=== PATIENT | male | born 1970 | race American Indian/Alaskan Native ===

== ENCOUNTER 2020-04-22 01:21 | Emergency (ER) | payer OTHER ==
[2020-04-22] MEDS ORDERED: levETIRAcetam 1000 MG/NS 0.75% 1,000 MG/100 ML BAG IV ONE (01:26)
[2020-04-22] MEDS ORDERED: SODIUM CHLORIDE 0.9% 1000 ML 1,000 ML IV ONE ×2 (01:26→03:00)
--- NOTE | 2020-04-22 01:27 | Emergency Department Report ---
ED Seizure HPI - General Chief Complaint: Seizure Stated Complaint: SEIZURES Time Seen by Provider: 04/22/20 01:24 Source: patient, EMS Mode of arrival: Stretcher Limitations: No Limitations - History of Present Illness Initial Comments: Patient is a 49-year-old male that presents emergency room with a new onset seizure. Patient states he does have a history of seizures. Patient seizure was witnessed by his family. Patient states he was in his sleep. Patient states the next thing He notices was EMS and his family were standing around him. EMS states that the family witnessed him having convulsions while in bed. Patient denies pain. Patient denies chest pain. Patient denies recent head injury. Patient denies neck pain. Patient denies recent travel. Patient denies recent international travel. Patient denies exposure to the novel coronavirus. Patient denies sick contacts. Patient denies fever and chills. Patient denies cough. Patient denies diarrhea. Patient denies coming in contact with anybody with symptoms of the novel coronavirus. MD Complaint: seizure -: Sudden Description of Episode: loss of consciousness, post-event confusion Witnessed:: Yes Trauma: No Seizure History: none Place: home Possible Precipitating Event: none Associated Symptoms: denies: chest pain, confusion, cough, diaphoresis, fever/chills, loss of appetite, malaise, rash, shortness of breath, syncope, weakness, tongue injury, shoulder dislocation Treatments Prior to Arrival: none - Related Data Allergies Allergy/AdvReac Type Severity Reaction Status Date / Time No Known Allergies Allergy Unverified 04/22/20 01:27 ED Review of Systems ROS: Stated complaint: SEIZURES Other details as noted in HPI Constitutional: denies: chills, fever Eyes: denies: eye pain, eye discharge, vision change ENT: denies: ear pain, throat pain Respiratory: denies: cough, shortness of breath, wheezing Cardiovascular: denies: chest pain, palpitations Endocrine: no symptoms reported Gastrointestinal: denies: abdominal pain, nausea, diarrhea Genitourinary: denies: urgency, dysuria Musculoskeletal: denies: back pain, joint swelling, arthralgia Skin: denies: rash, lesions Neurological: denies: headache, weakness, paresthesias Psychiatric: denies: anxiety, depression Hematological/Lymphatic: denies: easy bleeding, easy bruising ED Past Medical Hx - Past Medical History Previous Medical History?: Yes Hx Diabetes: Yes Hx Seizures: No Additional medical history: Obstructive sleep apnea - Surgical History Past Surgical History?: No - Family History Family history: no significant - Social History Smoking Status: Never Smoker Substance Use Type: None ED Physical Exam - General Limitations: No Limitations General appearance: alert, in no apparent distress - Head Head exam: Present: atraumatic, normocephalic - Eye Eye exam: Present: normal appearance - ENT ENT exam: Present: mucous membranes moist - Neck Neck exam: Present: normal inspection - Respiratory Respiratory exam: Present: normal lung sounds bilaterally. Absent: respiratory distress - Cardiovascular Cardiovascular Exam: Present: regular rate, normal rhythm. Absent: systolic murmur, diastolic murmur, rubs, gallop - GI/Abdominal GI/Abdominal exam: Present: soft, normal bowel sounds - Rectal Rectal exam: Present: deferred - Extremities Exam Extremities exam: Present: normal inspection - Back Exam Back exam: Present: normal inspection - Neurological Exam Neurological exam: Present: alert, oriented X3 - Psychiatric Psychiatric exam: Present: normal affect, normal mood - Skin Skin exam: Present: warm, dry, intact, normal color. Absent: rash ED Course Vital Signs 04/22/20 04/22/20 04/22/20 01:24 01:31 01:46 Temperature 98.8 F Pulse Rate 114 H 113 H Respiratory 21 13 19 Rate Blood Pressure 152/85 Blood Pressure 152/85 [right aqrm] O2 Sat by Pulse 94 97 Oximetry 04/22/20 04/22/20 04/22/20 02:00 02:16 02:30 Temperature Pulse Rate Respiratory Rate Blood Pressure 143/87 143/87 143/87 Blood Pressure [right aqrm] O2 Sat by Pulse 95 95 97 Oximetry - Reevaluation(s) Reevaluation #1: I discussed labs with patient. Patient agrees with fluids and insulin. 04/22/20 03:20 Reevaluation #2: I discussed all results with patient. I discussed plan of care with patient. Patient refused to be admitted to the hospital. I discussed the risk with mert mobley. Patient voiced understanding of the risk. Patient refused to be admitted. Patient signed AMA form. Patient is going to leave the hospital AGAINST MEDICAL ADVICE. Patient still given discharge instructions. 04/22/20 03:51 ED Medical Decision Making - Lab Data Result diagrams: 04/22/20 01:33 04/22/20 01:33 - EKG Data -: EKG Interpreted by Me EKG shows normal: sinus rhythm, axis, intervals, QRS complexes, ST-T waves Rate: tachycardia - Radiology Data Radiology results: report reviewed CT head without contrast INDICATION : Seizure. TECHNIQUE: Axial imaging performed from the skull apex through the skull base without the use of contrast. All CT examinations performed at this facility utilize dose modulation, iterative reconstruction or weight-based dosing, when appropriate, to reduce radiation dose to as low as reasonably achievable. COMPARISON: None FINDINGS: No acute intracranial hemorrhage or parenchymal abnormality. Ventricles are normal in size and appear symmetric. Soft tissues including the orbits appear normal. No acute osseous a bnormality. Sinuses and mastoid air cells are clear. IMPRESSION: No acute abnormality. - Medical Decision Making Patient is a 49-year-old male that presents emergency room with new onset seizure. Patient also found to have hyperglycemia with EMS. Patient had labs done which showed dehydration and hyperglycemia. Patient given 2 L of fluid and Keppra.. Patient given insulin and his blood sugar dropped to 70. Patient's responded well to treatment. Patient had a head CT which was negative. Patient had EKG which was negative and showed sinus tachycardia. Patient requires admi ssion however the patient does not agree. Patient refused to be admitted. Patient given discharge instructions even though he is leaving the hospital AGAINST MEDICAL ADVICE. I discussed the risk with patient and the patient voiced understanding of the risk. Patient signed AMA form. Patient left the hospital AGAINST MEDICAL ADVICE with discharge instructions. - Differential Diagnosis Seizure, new onset seizure, hyperglycemia, uncontrolled diabetes, DKA Critical Care Time: Yes Critical care time in (mins) excluding proc time.: 35 Critical care attestation.: If time is entered above; I have spent that time in minutes in the direct care of this critically ill patient, excluding procedure time. Critical Care Time: 35 minutes ED Disposition Clinical Impression: Seizure, Hyperglycemia, New onset seizure Disposition: [id number] LEFT AGAINST MED ADVICE Is pt being admited?: No Does the pt Need Aspirin: No Condition: Critical Instructions: Seizure, Adult, Preventing Type 2 Diabetes Mellitus, Managing Non-Epileptic Seizures, Adult Additional Instructions: Patient to follow-up with primary care in 2 to 3 days. Patient to follow-up with neurology and endocrinology in 2 to 3 days. Patient to rest. Patient to increase water. Patient to avoid strenuous exercise or heavy lifting until cleared by neurology. Patient to not drive. patient to take Tylenol or ibupr ofen as needed for pain. Patient to take meds as directed. Patient to eat a diabetic diet. Patient to eat a heart healthy diet. Patient to monitor blood sugars at home. Patient to keep a blood sugar log. Patient to take blood sugar log to follow-up appointments. Patient to return to the ER if condition worsens, changes or new symptoms arise. Referrals: PRIMARY CARE, [Primary Care Provider] - 2-3 Days YORDAN YANEZ MD [Staff Physician] - 2-3 Days Time of Disposition: 03:54
[2020-04-22 01:52] LABS: Basophils % (Auto) 0.4 % (0.0-1.8); Eosinophils # (Auto) 1.1 K/mm3 (0.0-0.4); Lymphocytes # (Auto) 2.2 K/mm3 (1.2-5.4); Lymphocytes % (Auto) 28.6 % (13.4-35.0); Mean Corpuscular HGB Conc 36 % (32-34); Mean Corpuscular Volume 84 fl (84-94); Monocytes # (Auto) 0.4 K/mm3 (0.0-0.8); Monocytes % (Auto) 5.1 % (0.0-7.3); Platelet Count 186 K/mm3 (140-440); Red Blood Count 4.99 M/mm3 (3.65-5.03); Red Cell Distribution Width 13.3 % (13.2-15.2)
[2020-04-22 01:58] LABS: Hematocrit 41.8 % (35.5-45.6)
[2020-04-22 02:04] VITALS: BP 143/87
[2020-04-22 02:32] LABS: Bilirubin,Urine NEG (Negative); Blood,Urine SM (Negative); Color,Urine Colorless (Yellow); Mucus,Urine FEW /HPF; Protein,Urine <15 mg/dL mg/dL (Negative); Urobilinogen,Urine < 2.0 mg/dL (<2.0); WBC,Urine < 1.0 /HPF (0.0-6.0)
[2020-04-22 02:41] LABS: Amphetamine Screen,Urine PRESUMPTIVE NEGATIVE; Benzodiazepines Screen,Urine PRESUMPTIVE NEGATIVE; Cannabinoid Screen,Urine PRESUMPTIVE NEGATIVE; Cocaine Screen,Urine PRESUMPTIVE NEGATIVE; Methadone Screen,Urine PRESUMPTIVE NEGATIVE; Opiate Screen,Urine PRESUMPTIVE NEGATIVE
[2020-04-22 02:56] LABS: Alanine Aminotransferase 38 units/L (7-56); Albumin 4.1 g/dL (3.9-5); BUN/Creatinine Ratio 11; Blood Urea Nitrogen 13 mg/dL (9-20); Calcium 9.6 mg/dL (8.4-10.2); Hemolysis Index 19
[2020-04-22] MEDS ORDERED: INSULIN REGULAR, HUMAN 100 UNIT/ML 3ML VIAL IV ONE (03:00)
[2020-04-22] MEDS ORDERED: INSULIN REGULAR, HUMAN 100 UNITS/1 ML ONE (03:00)
--- NOTE | 2020-04-22 03:05 | Cat Scan Report ---
CT head without contrast INDICATION : Seizure. TECHNIQUE: Axial imaging performed from the skull apex through the skull base without the use of con trast. All CT examinations performed at this facility utilize dose modulation, iterative reconstruct ion or weight-based dosing, when appropriate, to reduce radiation dose to as low as reasonably achiev able. COMPARISON: None FINDINGS: No acute intracranial hemorrhage or parenchymal abnormality. Ventricles are normal in si ze and appear symmetric. Soft tissues including the orbits appear normal. No acute osseous abnorm ality. Sinuses and mastoid air cells are clear. IMPRESSION: No acute abnormality. Signer Name: Travis Montero MD Signed: 04/22/2020 3:00 AM Workstation Name: [id number]
== END 2020-04-22 04:07 | disposition left against medical advice (07) ==
LOC: ED 01:21
DX: G40.909 Epilepsy, unspecified, not intractable, without status epilepticus (principal); E11.65 Type 2 diabetes mellitus with hyperglycemia; G47.33 Obstructive sleep apnea (adult) (pediatric)
CPT/HCPCS: 36415; 70450; 80053; 80307; 81001; 82962; 85025; 93005; 96361; 96374; 96375; 99285; J1953; J7030; 80320; 96365; G0480; J1815

== ENCOUNTER 2021-07-17 00:07 | Inpatient (IN) | payer OTHER ==
[~2021-07-17 00:07] MED LIST: ETOMIDATE 20 MG/10 ML INJ IV ONE; ROCURONIUM 50 MG/5 ML INJ IV ONE
[2021-07-17] MEDS ORDERED: LACTATED RINGERS 1,000 ML IV ONE ×2 (00:15→01:37)
[2021-07-17] MEDS ORDERED: ETOMIDATE 20 MG/10 ML INJ IV ONE (00:15)
[2021-07-17] MEDS ORDERED: LIP THERAPY VASELINE TP PRN (00:15)
[2021-07-17] MEDS ORDERED: levETIRAcetam 1000 MG/NS 0.75% 1,000 MG/100 ML BAG IV ONE ×4 (00:15→03:00)
[2021-07-17] MEDS ORDERED: MINERAL OIL/PETROLATUM, WHITE OPHTH OINT 3.5 GM OU PRN (00:15)
--- NOTE | 2021-07-17 00:21 | Emergency Department Report ---
ED General Adult HPI - General Chief complaint: Altered Mental Status Stated complaint: ams Time Seen by Provider: 07/17/21 00:14 Source: EMS (Verbal report received from emergency medical services. EMS documentation not available at time of chart dictation ), RN notes reviewed, old records reviewed Mode of arrival: Stretcher Limitations: Altered Mental Status, Physical Limitation - History of Present Illness Initial comments: The patient was evaluated in the emergency department for symptoms described in the history of present illness. He/she was evaluated in the context of the global COVID-19 pandemic, which necessitated consideration that the patient might be at risk for infection with the virus that causes COVID-19. Institutional protocols and algorithms that pertain to the evaluation of patients at risk for COVID-19 are in a state of rapid change based on information released by regulatory bodies including the CDC and federal and sta organizations. These policies and algorithms were followed during the patient's care in the emergency department. Please note that these policies, procedures and recommendations changed on a rapid basis. The patient is a 50-year-old gentleman. The patient was seen here in 2019 for seizures and hyperglycemia. Admission was recommended at that time, and the patient reportedly signed out AMA, as per review of medical documentation. The patient is brought to the hospital by EMS today with an EMS articulated complaint of SVT, seizure, and hyperglycemia. As per verbal report from EMS, patient reportedly had a seizure or convulsion at home, without trauma. EMS reports that they picked up the patient and he was not seizing, but he was somewhat altered and combative, moving 4 extremities, and hyperglycemic in the field. EMS reports that the patient is tachycardic, hyperglycemic in the field and hypertensive. EMS reports that prehospital EKG shows narrow complex regular tachycardia/SVT. EMS further reports that they gave 6 mg of adenosine, 12 mg of adenosine, without success. They did not attempt cardioversion, or defibrillation. They also reports that the patient had a convulsive event in the field, which they terminated with 10 mg of midazolam. On arrival to this emergency room, the patient is noted to be in a narrow complex regular tachycardia, and is breathing sonorously He is on a nonrebreather, and under my direct supervision, he is emergently cardioverted with synchronized cardioversion at 200 J. The patient successfully converts into a sinus tachycardia. Post cardioversion, patient breathing sonorously and is not protecting his airway. Patient placed on nasal cannula at 15 L/min, and receives rhx-[id number]-[id number] ventilation. The patient is induced with 20 mg of etomidate, and paralyzed with 100 mg of rocuronium. The patient is easily intubated using video laryngoscopy with 1 attempt. Patient has now been in the emergency room for almost 2 hours. He has not had any additional seizures or convulsive activity. The patient had a CT scan of the brain, CT angiogram head and neck which was negative for acute findings. Contacted neurology on-call, Dr. Galina Wallace. Discussed the patient's history, physical, laboratory studies and imaging studies, and clinical impression. We are in agreement that this patient may be admitted to this hospital, with aggressive treatment for diabetic ketoacidosis. Patient does not require transfer for continuous EEG monitoring at this time, he is also in agreement with sedation with propofol and / orVersed, treatment of diabetic ketoacidosis and supportive care and we are also in agreement that the patient may receive an expedited/urgent inpatient EEG. His laboratory studies demonstrate diabetic ketoacidosis/metabolic acidosis, hemoconcentration, and a leukocytosis that is likely a stress reaction. Contacted critical care physician on-call, Dr. Moreno. He agrees with admission into the intensive care unit. Hospital physician, Dr. Rothman to admit to the ICU -: This evening - Related Data Allergies Allergy/AdvReac Type Severity Reaction Status Date / Time No Known Allergies Allergy Unverified 04/22/20 01:27 ED Review of Systems ROS: Stated complaint: SVT Other details as noted in HPI Comment: Unobtainable due to pts medical conditions (History as per EMS) ED Past Medical Hx - Past Medical History Hx Hypertension: Yes Hx Diabetes: Yes Hx Seizures: No Additional medical history: Obstructive sleep apnea - Social History Smoking Status: Never Smoker Substance Use Type: None ED Physical Exam - General Limitations: Altered Mental Status, Physical Limitation General appearance: obtunded - Head Head exam: Present: atraumatic, normocephalic - Eye Eye exam: Present: normal appearance, PERRL - ENT ENT exam: Present: normal exam, mucous membranes moist, normal external ear exam, other (Prior to intubation, copious secretions noted in the MARY PHARYNX) - Neck Neck exam: Present: normal inspection, full ROM. Absent: tenderness, meningismus - Respiratory Respiratory exam: Present: respiratory distress, rhonchi. Absent: stridor - Cardiovascular Cardiovascular Exam: Present: normal rhythm, tachycardia, normal heart sounds. Absent: bradycardia, irregular rhythm, systolic murmur, diastolic murmur, rubs, gallop - GI/Abdominal GI/Abdominal exam: Present: soft. Absent: distended, tenderness, guarding, rebound, rigid, pulsatile mass - Rectal Rectal exam: Present: deferred - Extremities Exam Extremities exam: Present: normal inspection, full ROM, other (2+ pulses noted in the bilateral upper and lower extremities. There is no palpable cord. negative Homans sign. Muscular compartments are soft. The pelvis is stable.). Absent: pedal edema, calf tenderness - Back Exam Back exam: Present: normal inspection, full ROM. Absent: tenderness, CVA tenderness (R), CVA tenderness (L), paraspinal tenderness, vertebral tenderness - Neurological Exam Neurological exam: Present: altered (The patient is altered. The patient is not seizing.) - Skin Skin exam: Present: warm, dry, intact, normal color. Absent: rash ED Course Vital Signs 07/17/21 07/17/21 07/17/21 00:07 00:48 00:50 Pulse Rate 154 H 127 H 102 H Respiratory 30 H 28 H Rate Blood Pressure 132/65 O2 Sat by Pulse 94 99 Oximetry 07/17/21 07/17/21 07/17/21 01:00 01:16 01:46 Pulse Rate 127 H 140 H 123 H Respiratory 28 H 28 H 26 H Rate Blood Pressure 119/62 123/75 104/61 O2 Sat by Pulse 98 98 98 Oximetry - Consultations Consultation #1: 07/17/21 02:05 Contacted neurology on-call, Dr. Galina Wallace. Discussed the patient's history, physical, laboratory studies and imaging studies, and clinical impression. We are in agreement that this patient may be admitted to this hospital, with aggressive treatment for diabetic ketoacidosis. Patient does not require transfer for continuous EEG monitoring at this time, he is also in agreement with sedation with propofol and / orVersed, treatment of diabetic ketoacidosis and supportive care and we are also in agreement that the patient may receive an expedited/urgent inpatient EEG. Contacted critical care physician on-call, Dr. Moreno. He agrees with admission into the intensive care unit. Consultation #2: 07/17/21 02:05 Contacted critical care physician on-call, Dr. Moreno. Discussed the patient's history, physical, laboratory studies and imaging studies and clinical impression. He agrees with admission into the intensive care unit. - Procedure Description Procedures done: Under direct supervision, patient received synchronized cardioversion at 200 J. Patient is emergently and administratively consented by myself for synchronized cardioversion, given narrow complex tachycardia, and altered mental status. After receipt of 200 J, patient in a sinus tachycardia, and tolerated procedure without difficulty - Intubation Time Out Performed: No (Emergency situation) Sedative: Etomidate (20 mg) Mg Given: 20 Paralytic: Rocuronium (100 mg) Laryngoscope: fiberoptic video scope Size: 4 Assist Device Used: fiberoptic device ET Tube Size: 7.5 Tube Secured Depth (cm): 24 Tube Secured Location: teeth Tube Placement Confirmation: visualized tube passing t, equal breath sounds bilat, no breath sounds over epi, confirmation by capnometr Patient Tolerated Procedure: well Intubation Complications: none Additional Comments: Patient placed on nasal cannula 15 L/min. Received simultaneous cam-ymudj-trgg ventilation. Preoxygenated to 99/100%. Video laryngoscopy is performed, with a curved S4 video living scope blade, and a 7.5 endotracheal tube is gently inserted into the oropharynx, after appropriate suctioning. The tube is placed through the trachea without difficulty, stylette is removed, check pilot balloon is inflated, and end-tidal capnography confirmatory device is attached to the endotracheal tube, and there is appropriate end-tidal capnography color change. Condensation is noted on the tube, and there are appropriate breath sounds appreciated bilaterally. The patient tolerated the procedure well, without obvious complication - Pulse Oximetry Interpretation Digit-Finger Initial Pulse Oximetry Readin O2 Sat by Pulse Oximetry: 99 Actions Taken: intubated (Saturating 99/100% on mechanical ventilation) ED Medical Decision Making - Lab Data Result diagrams: 07/17/21 00:47 07/17/21 00:47 Vital Signs 07/17/21 07/17/21 07/17/21 00:07 00:48 00:50 Pulse Rate 154 H 127 H 102 H Respiratory 30 H 28 H Rate Blood Pressure 132/65 O2 Sat by Pulse 94 99 Oximetry 07/17/21 07/17/21 07/17/21 01:00 01:16 01:46 Pulse Rate 127 H 140 H 123 H Respiratory 28 H 28 H 26 H Rate Blood Pressure 119/62 123/75 104/61 O2 Sat by Pulse 98 98 98 Oximetry Lab Results 07/17/21 07/17/21 07/17/21 Range/Units 00:47 00:47 00:47 WBC 19.0 H (4.5-11.0) K/mm3 RBC 5.74 H (3.65-5.03) M/mm3 Hgb 16.1 H (11.8-15.2) gm/dl Hct 51.0 H (35.5-45.6) % MCV 89 (84-94) fl MCH 28 (28-32) pg MCHC 32 (32-34) % RDW 12.3 L (13.2-15.2) % Plt Count 246 (140-440) K/mm3 Lymph # (Auto) Behavioral Specialist PT 14.6 (12.2-14.9) Sec. INR 1.03 (0.87-1.13) APTT 27.8 (24.2-36.6) Sec. Thrombin Time 19.7 H (15.1-19.6) Sec. VBG pH (7.320-7.420) Sodium 135 L (137-145) mmol/L Potassium 4.5 (3.6-5.0) mmol/L Chloride 92.9 L (98-107) mmol/L Carbon Dioxide 10 L (22-30) mmol/L Anion Gap 37 mmol/L BUN 13 (9-20) mg/dL Creatinine 1.4 H (0.8-1.3) mg/dL Estimated GFR > 60 ml/min BUN/Creatinine Ratio 9 % Glucose 532 H* (75-100) mg/dL Calcium 9.0 (8.4-10.2) mg/dL Magnesium 2.60 H (1.7-2.3) mg/dL Total Bilirubin 0.50 (0.1-1.2) mg/dL AST 23 (5-40) units/L ALT 29 (7-56) units/L Alkaline Phosphatase 143 H (35-129) units/L Total Creatine Kinase 146 (55-170) units/L CK-MB (CK-2) 2.9 (0.0-4.0) ng/mL CK-MB (CK-2) Rel Index 1.9 (0-4) Troponin T < 0.010 (0.00-0.029) ng/mL Total Protein 7.0 (6.3-8.2) g/dL Albumin 4.3 (3.9-5) g/dL Albumin/Globulin Ratio 1.6 % Salicylates (2.8-20.0) mg/dL Acetaminophen (10.0-30.0) ug/mL Plasma/Serum Alcohol (0-0.07) % 07/17/21 07/17/21 07/17/21 Range/Units 00:47 00:47 00:47 WBC (4.5-11.0) K/mm3 RBC (3.65-5.03) M/mm3 Hgb (11.8-15.2) gm/dl Hct (35.5-45.6) % MCV (84-94) fl MCH (28-32) pg MCHC (32-34) % RDW (13.2-15.2) % Plt Count (140-440) K/mm3 Lymph # (Auto) PT (12.2-14.9) Sec. INR (0.87-1.13) APTT (24.2-36.6) Sec. Thrombin Time (15.1-19.6) Sec. VBG pH 7.015 L* (7.320-7.420) Sodium (137-145) mmol/L Potassium (3.6-5.0) mmol/L Chloride (98-107) mmol/L Carbon Dioxide (22-30) mmol/L Anion Gap mmol/L BUN (9-20) mg/dL Creatinine (0.8-1.3) mg/dL Estimated GFR ml/min BUN/Creatinine Ratio % Glucose (75-100) mg/dL Calcium (8.4-10.2) mg/dL Magnesium (1.7-2.3) mg/dL Total Bilirubin (0.1-1.2) mg/dL AST (5-40) units/L ALT (7-56) units/L Alkaline Phosphatase (35-129) units/L Total Creatine Kinase (55-170) units/L CK-MB (CK-2) (0.0-4.0) ng/mL CK-MB (CK-2) Rel Index (0-4) Troponin T (0.00-0.029) ng/mL Total Protein (6.3-8.2) g/dL Albumin (3.9-5) g/dL Albumin/Globulin Ratio % Salicylates < 0.3 L (2.8-20.0) mg/dL Acetaminophen (10.0-30.0) ug/mL Plasma/Serum Alcohol < 0.01 (0-0.07) % 07/17/21 Range/Units 00:47 WBC (4.5-11.0) K/mm3 RBC (3.65-5.03) M/mm3 Hgb (11.8-15.2) gm/dl Hct (35.5-45.6) % MCV (84-94) fl MCH (28-32) pg MCHC (32-34) % RDW (13.2-15.2) % Plt Count (140-440) K/mm3 Lymph # (Auto) PT (12.2-14.9) Sec. INR (0.87-1.13) APTT (24.2-36.6) Sec. Thrombin Time (15.1-19.6) Sec. VBG pH (7.320-7.420) Sodium (137-145) mmol/L Potassium (3.6-5.0) mmol/L Chloride (98-107) mmol/L Carbon Dioxide (22-30) mmol/L Anion Gap mmol/L BUN (9-20) mg/dL Creatinine (0.8-1.3) mg/dL Estimated GFR ml/min BUN/Creatinine Ratio % Glucose (75-100) mg/dL Calcium (8.4-10.2) mg/dL Magnesium (1.7-2.3) mg/dL Total Bilirubin (0.1-1.2) mg/dL AST (5-40) units/L ALT (7-56) units/L Alkaline Phosphatase (35-129) units/L Total Creatine Kinase (55-170) units/L CK-MB (CK-2) (0.0-4.0) ng/mL CK-MB (CK-2) Rel Index (0-4) Troponin T (0.00-0.029) ng/mL Total Protein (6.3-8.2) g/dL Albumin (3.9-5) g/dL Albumin/Globulin Ratio % Salicylates (2.8-20.0) mg/dL Acetaminophen 5.0 L (10.0-30.0) ug/mL Plasma/Serum Alcohol (0-0.07) % - EKG Data -: EKG Interpreted by Md EKG shows normal: sinus rhythm Rate: normal - EKG Data 07/17/21 02:08 The EKG is interpreted at 02: 01 Sinus rhythm, tachycardia, rate 118 bpm. Normal axis, normal intervals, high left ventricular voltage. Not a STEMI. - Radiology Data Radiology results: pending, report reviewed, image reviewed CT angio neck INDICATION / CLINICAL INFORMATION: 50 years Male; seizure ams. TECHNIQUE: Thin cut axial images obtained through the head during IV bolus contrast administration. Sagittal, coronal, and 3 plane MIP reconstructions performed by the technologist. NASCET type criteria used evaluate stenoses. All CT scans at this location are performed using CT dose reduction for ALARA by means of automated exposure control. . COMPARISON: None available. FINDINGS: ARCH: Bovine arch configuration noted. CAROTID ARTERIES: The visualized common and internal carotid arteries are widely patent. VERTEBRAL ARTERIES: Codominant vertebral system seen. No significant stenosis appreciated. ADDITIONAL FINDINGS: Minimal scarring type changes in the lung apices-left greater than right. Patient is intubated. Some component of pleural thickening noted. Mild mucosal thickening in the ethmoids. IMPRESSION: No significant stenosis apprec iated on this CTA of the neck. Signer Name: Lane Alvarenga MD, III Signed: 07/17/2021 12:11 AM Workstation Name: [employer] CT angio head INDICATION / CLINICAL INFORMATION: 50 years Male; seizure ams. TECHNIQUE: Thin cut axial images obtained through the head during IV bolus contrast administration. Sagittal, coronal, and 3 plane MIP reconstructions performed by the technologist. NASCET type criteria used evaluate stenoses. Automated exposure control utilized for radiation reduction purposes. . COMPARISON: CT head - 12: 15 AM FINDINGS: INTERNAL CAROTID ARTERIES: No significant narrowing appreciated. VERTEBROBASILAR SYSTEM: No significant narrowing appreciated. DISTAL BRANCHES: Distal branches of the anterior, middle, and posterior cerebral arteries are fairly symmetric in appearance and number. ANEURYSM: None identified. ADDITIONAL FINDINGS: Remainder of the surrounding soft tissues are grossly normal. IMPRESSION: No cause for seizures identified. Signer Name: Lane Alvarenga MD, III Signed: 07/17/2021 12:12 AM Workstation Name: [id number] CT head/brain wo con INDICATION / CLINICAL INFORMATION: seizure ams. TECHNIQUE: Axial CT imaging of the brain was obtained without contrast. Coronal and sagittal reformatted imaging obtained and reviewed. All CT scans at this location are performed using CT dose reduction for ALARA by means of automated exposure control. COMPARISON: Prior head CT 04/22/2020 FINDINGS: No intracranial hemorrhage, mass, or midline shift noted. No extra-axial fluid collection or suggestion of acute territorial infarction. Ventricular system and basilar cisterns are unremarkable. Visualized paranasal sinuses and mastoid air cells are well aerated and clear. No calvarial abnormality. IMPRESSION: 1. No acute intracranial abnormality. Signer Name: Virginia Zheng MD Signed: 07/16/2021 11:59 PM Workstation Name: [id number] CHEST 1 VIEW INDICATION / CLINICAL INFORMATION: sz ams ett placement. COMPARISON: 06/18/2017 FINDINGS: SUPPORT DEVICES: ET tube is present. The tip is approximately 7 cm from the darrin. HEART / MEDIASTINUM: No significant abnormality. LUNGS / PLEURA: No significant pulmonary or pleural abnormality. No pneumothorax. Please note that overlying structures somewhat obscure detailed evaluation of the right lung. ADDITIONAL FINDINGS: No significant additional findings. IMPRESSION: 1. Tip of the ET tube is in the proximal/mid trachea, 7 cm from darrin. 2. No definite acute pulmonary or pleural disease. Signer Name: Virginia Zheng MD Signed: 07/17/2021 12:12 AM Workstation Name: [id number] - Medical Decision Making Differential diagnosis, including the not limited to: Diabetic ketoacidosis, pneumonia, urinary tract infection, seizure, intracranial lesion, large vessel occlusion, noncompliance, dehydration, SVT Assessment and plan: 50-year-old gentleman, with seizure, diabetic ketoacidosis, SVT, now in sinus rhythm status post cardioversion, status post midazolam administration by EMS, with multifactorial encephalopathy, requiring intubation. He will be maintained on a diabetic ketoacidosis protocol. He will receive IV fluids, Keppra, propofol. A CT scan of the brain, CT angiogram head and neck were negative for acute findings. X-ray the chest is unremarkable for acute findings. Urinalysis is pending at this time. Leukocytosis is likely a stress reaction. Critical care, neurology have been consulted. Hospital medicine to admit this patient to the medical service. Critical Care Time: Yes Critical care time in (mins) excluding proc time.: 74 Critical care attestation.: If time is entered above; I have spent that time in minutes in the direct care of this critically ill patient, excluding procedure time. ED Disposition Clinical Impression: Acute respiratory failure, SVT (supraventricular tachycardia), Seizure, DKA ( diabetic ketoacidosis) Disposition: 09 ADMITTED INPATIENT Is pt being admited?: Yes Does the pt Need Aspirin: No Condition: Critical Instructions: Diabetic Ketoacidosis (ED)
--- NOTE | 2021-07-17 01:04 | Cat Scan Report ---
CT head/brain wo con INDICATION / CLINICAL INFORMATION: seizure ams. TECHNIQUE: Axial CT imaging of the brain was obtained without contrast. Coronal and sagittal reformatted imaging obtained and reviewed. All CT scans at this location are performed using CT dose reduction for ALAR A by means of automated exposure control. COMPARISON: Prior head CT 04/22/2020 FINDINGS: No intracranial hemorrhage, mass, or midline shift noted. No extra-axial fluid collection or suggesti on of acute territorial infarction. Ventricular system and basilar cisterns are unremarkable. Visualized paranasal sinuses and mastoid air cells are well aerated and clear. No calvarial abnormali ty. IMPRESSION: 1. No acute intracranial abnormality. Signer Name: Virginia Zheng MD Signed: 07/17/2021 12:59 AM Workstation Name: [id number]
[2021-07-17 01:10] LABS: Hemoglobin 16.1 gm/dl (11.8-15.2); Mean Corpuscular HGB Conc 32 % (32-34); Mean Corpuscular Volume 89 fl (84-94); Platelet Count 246 K/mm3 (140-440); Red Blood Count 5.74 M/mm3 (3.65-5.03); Red Cell Distribution Width 12.3 % (13.2-15.2)
[2021-07-17] MEDS ORDERED: ROCURONIUM 50 MG/5 ML INJ IV ONE (01:12)
--- NOTE | 2021-07-17 01:15 | Cat Scan Report ---
CT angio neck INDICATION / CLINICAL INFORMATION: 50 years Male; seizure ams. TECHNIQUE: Thin cut axial images obtained through the head during IV bolus contrast administration. S agittal, coronal, and 3 plane MIP reconstructions performed by the technologist. NASCET type criteria used evaluate stenoses. All CT scans at this location are performed using CT dose reduction for ALAR A by means of automated exposure control. . COMPARISON: None available. FINDINGS: ARCH: Bovine arch configuration noted. CAROTID ARTERIES: The visualized common and internal carotid arteries are widely patent. VERTEBRAL ARTERIES: Codominant vertebral system seen. No significant stenosis appreciated. ADDITIONAL FINDINGS: Minimal scarring type changes in the lung apices-left greater than right. Patient is intubated. Some component of pleural thickening noted. Mild mucosal thickening in the ethmoids. IMPRESSION: No significant stenosis appreciated on this CTA of the neck. Signer Name: Lane Alvarenga MD, III Signed: 07/17/2021 1:11 AM Workstation Name: [id number]
--- NOTE | 2021-07-17 01:16 | XRay Report ---
CHEST 1 VIEW INDICATION / CLINICAL INFORMATION: sz ams ett placement. COMPARISON: 06/18/2017 FINDINGS: SUPPORT DEVICES: ET tube is present. The tip is approximately 7 cm from the darrin. HEART / MEDIASTINUM: No significant abnormality. LUNGS / PLEURA: No significant pulmonary or pleural abnormality. No pneumothorax. Please note that ov erlying structures somewhat obscure detailed evaluation of the right lung. ADDITIONAL FINDINGS: No significant additional findings. IMPRESSION: 1. Tip of the ET tube is in the proximal/mid trachea, 7 cm from darrin. 2. No definite acute pulmonary or pleural disease. Signer Name: Virginia Zheng MD Signed: 07/17/2021 1:12 AM Workstation Name: [id number]
--- NOTE | 2021-07-17 01:16 | Cat Scan Report ---
CT angio head INDICATION / CLINICAL INFORMATION: 50 years Male; seizure ams. TECHNIQUE: Thin cut axial images obtained through the head during IV bolus contrast administration. S agittal, coronal, and 3 plane MIP reconstructions performed by the technologist. NASCET type criteria used evaluate stenoses. Automated exposure control utilized for radiation reduction purposes. . COMPARISON: CT head - 12: 15 AM FINDINGS: INTERNAL CAROTID ARTERIES: No significant narrowing appreciated. VERTEBROBASILAR SYSTEM: No significant narrowing appreciated. DISTAL BRANCHES: Distal branches of the anterior, middle, and posterior cerebral arteries are fairly symmetric in appearance and number. ANEURYSM: None identified. ADDITIONAL FINDINGS: Remainder of the surrounding soft tissues are grossly normal. IMPRESSION: No cause for seizures identified. Signer Name: Lane Alvarenga MD, III Signed: 07/17/2021 1:12 AM Workstation Name: [email or web address] [id number]
[2021-07-17 01:26] LABS: INR 1.03 (0.87-1.13)
[2021-07-17 01:27] LABS: Partial Thromboplastin Time 27.8 Sec. (24.2-36.6); Thrombin Time 19.7 Sec. (15.1-19.6)
[2021-07-17 01:28] LABS: Creatine Kinase MB 2.9 ng/mL (0.0-4.0)
[2021-07-17 01:29] LABS: Alanine Aminotransferase 29 units/L (7-56); Albumin 4.3 g/dL (3.9-5); BUN/Creatinine Ratio 9; Blood Urea Nitrogen 13 mg/dL (9-20); Hemolysis Index 38
[2021-07-17] MEDS ORDERED: INSULIN REGULAR, HUMAN 100 UNITS/1 ML IV ONE (01:33)
[2021-07-17] MEDS ORDERED: DEXTROSE 50% IN WATER (25GM) 50 ML SYRINGE IV PRN ×2 (01:33→03:40)
[2021-07-17] MEDS ORDERED: D5W/0.45% NACL/KCL 20 MEQ 20 MEQ/1,000 ML BAG IV SCH (02:00)
[2021-07-17 02:14] LABS: BUN/Creatinine Ratio 9; Blood Urea Nitrogen 14 mg/dL (9-20); Calcium 9.1 mg/dL (8.4-10.2); Hemolysis Index 64
[2021-07-17] MEDS ORDERED: MIDAZOLAM 100 MG in SODIUM CHLORIDE 0.9% 80 ML IV SCH (02:31)
[2021-07-17 02:50] LABS: ABG Base Excess -8.1 mmol/L (-2.0-3.0); ABG HCO3 19.1 mmol/L (20.0-26.0); ABG Methemoglobin 0.6 % (0.0-1.5); ABG Oxygen Saturation 99.2 % (95.0-99.0); ABG PH 7.245 pH Units (7.350-7.450); ABG PO2 200.9 mm Hg (80.0-90.0)
[2021-07-17] MEDS: INSULIN REGULAR, HUMAN 100 UNITS in SODIUM CHLORIDE 0.9% 99 ML IV SCH ×2 (02:50→21:56)
[2021-07-17] MEDS ORDERED: MORPHINE 2 MG/1 ML INJ IV PRN (03:40)
[2021-07-17] MEDS ORDERED: ACETAMINOPHEN 325 MG TAB PO PRN (03:40)
[2021-07-17] MEDS ORDERED: ONDANSETRON 4 MG/2 ML INJ IV PRN (03:40)
[2021-07-17] MEDS ORDERED: ALBUTEROL 2.5 MG/3 ML NEBU IH PRN (03:40)
[2021-07-17] MEDS ORDERED: HYDROmorphone 1 MG/1 ML INJ IV PRN (03:40)
--- NOTE | 2021-07-17 03:52 | History and Physical Report ---
History of Present Illness Date of examination: 07/17/21 Date of admission: 07/17/21 Chief complaint: Altered mental status History of present illness: 50-year-old male with history of seizures and hyperglycemia was brought to the emergency room because of SVT, seizure, and hyperglycemia. patient reportedly had a seizure or convulsion at home, without trauma. EMS reports that they picked up the patient and he was not seizing, but he was somewhat altered and combative, moving 4 extremities, and hyperglycemic in the field. EMS reports that the patient is tachycardic, hyperglycemic in the field and hypertensive. EMS reports that prehospital EKG shows narrow complex regular tachycardia/SVT. EMS further reports that they gave 6 mg of adenosine, 12 mg of adenosine, without success. They did not attempt cardioversion, or defibrillation. They also reports that the patient had a convulsive event in the field, which they terminated with 10 mg of midazolam. On arrival to this emergency room, the patient is noted to be in a narrow complex regular tachycardia, and is breathing sonorously.patient was put on nonrebreather, and ER doctor emergently cardioverted with synchronized cardioversion at 200 J. The patient successfully converts into a sinus tachy cardia. Post cardioversion, patient breathing sonorously and is not protecting his airway. Subsequently patient was intubated by the ER physician The patient had a CT scan of the brain, CT angiogram head and neck which was negative for acute findings. Your doctor discussed the case with neurology on- call, Dr. Galina Wallace. The emergency room patient WBC is 19.2, blood glucose 532 anion gap 37 bicarb 10 BUN 13 creatinine 1.4 Patient laboratory studies demonstrate diabetic ketoacidosis/metabolic acidosis, hemoconcentration, and a leukocytosis that is likely a stress reaction. So going to admit the patient to the ICU. We consulted critical care evaluation as well as cardiology Past History Past Medical History: seizures Medications and Allergies Allergies Allergy/AdvReac Type Severity Reaction Status Date / Time No Known Allergies Allergy Unverified 04/22/20 01:27 Active Meds: Active Medications Acetaminophen (Acetaminophen 325 Mg Tab) 650 mg PO Q4H PRN PRN Reason: Pain MILD(1-3)/Fever >100.5/STEVENSON Albuterol (Albuterol 2.5 Mg/3 Ml Nebu) 2.5 mg IH Q3HRT PRN PRN Reason: Shortness Of Breath Albuterol/Ipratropium (Ipratropium/Albuterol Sulfate 3 Ml Ampul.Neb) 1 ampul IH Q6HRT HERMAN Dextrose (Dextrose 50% In Water (25gm) 50 Ml Syringe) 0 ml IV Q30MIN PRN; Anca col PRN Reason: Hypoglycemia Dextrose (Dextrose 50% In Water (25gm) 50 Ml Syringe) 0 ml IV Q30MIN PRN; Protocol PRN Reason: Hypoglycemia Famotidine (Famotidine 20 Mg/2 Ml Inj) 20 mg IV BID HERMAN Famotidine (Famotidine 20 Mg/2 Ml Inj) 20 mg IV BID HERMAN Hydromorphone HCl (Hydromorphone 1 Mg/1 Ml Inj) 0.5 mg IV Q3H PRN PRN Reason: Pain , Severe (7-10) Hydrophilic Ointment (Lip Therapy Vaseline) 1 applic TP Q2HR PRN PRN Reason: Dry Lips Propofol (Diprivan 10 Mg/Ml) 1,000 mg in 100 mls @ 12.927 mls/hr IV TITR HERMAN; Protocol Insulin Human Regular 100 (units/ Sodium Chloride) 100 mls @ 1 mls/hr IV TITR HERMAN; Protocol Last Admin: 07/17/21 02:50 Dose: 8 units/hr, 8 mls/hr Potassium Chloride/Dextrose/Sod Cl (D5w/0.45% Nacl/Kcl 20 Meq) 20 meq in 1,000 mls @ 125 mls/hr IV DIRECT HERMAN Midazolam HCl 100 mg/ Sodium (Chloride) 100 mls @ 1 mls/hr IV TITR HERMAN; Protocol Last Admin: 07/17/21 02:49 Dose: 1 mg/hr, 1 mls/hr Insulin Human Regular 100 (units/ Sodium Chloride) 100 mls @ 1 mls/hr IV TITR HERMAN; Protocol Sodium Chloride (Nacl 0.45% 1000 Ml) 1,000 mls @ 150 mls/hr IV DIRECT HERMAN Potassium Chloride/Dextrose/Sod Cl (D5w/0.45% Nacl/Kcl 20 Meq) 20 meq in 1,000 mls @ 125 mls/hr IV DIRECT HERMAN Levetiracetam 500 mg/ Dextrose 105 mls @ 400 mls/hr IV Q12HR HERMAN Midazolam HCl (Midazolam 2 Mg/2 Ml Inj) 2 mg IV Q10MIN PRN PRN Reason: Sedation Morphine Sulfate (Morphine 2 Mg/1 Ml Inj) 2 mg IV Q4H PRN PRN Reason: Pain, Moderate (4-6) Multi-Ingred Cream/Lotion/Oil/Oint (Mineral Oil/Petrolatum, White Ophth Oint 3.5 Gm) 1 applic OU Q4HR PRN PRN Reason: Dry Eye(s) Ondansetron HCl (Ondansetron 4 Mg/2 Ml Inj) 4 mg IV Q8H PRN PRN Reason: Nausea And Vomiting Senna/Docusate Sodium (Sennosides/Docusate Sodium 8.6/50 Mg Tab) 1 tab FEEDTUBE BID HERMAN Sodium Chloride (Sodium Chloride 0.9% 10 Ml Flush Syringe) 10 ml IV PRN PRN PRN Reason: LINE FLUSH Sodium Chloride (Sodium Chloride 0.9% 10 Ml Flush Syringe) 10 ml IV BID HERMAN Sodium Chloride (Sodium Chloride 0.9% 10 Ml Flush Syringe) 10 ml IV PRN PRN PRN Reason: LINE FLUSH Review of Systems All systems: negative Constitutional: fatigue, malaise, lethargy Neurological: change in mentation Exam - Constitutional Vitals: Temp Pulse Resp BP Pulse Ox 112 H 26 H 104/61 99 07/17/21 03:21 07/17/21 01:46 07/17/21 01:46 07/17/21 03:21 General appearance: Present: severe distress, well-nourished - EENT Eyes: Present: PERRL ENT: hearing intact, clear oral mucosa - Neck Neck: Present: supple, normal ROM - Respiratory Respiratory effort: normal Respiratory: bilateral: CTA - Cardiovascular Heart Sounds: Present: S1 & S2. Absent: rub, click - Extremities Extremities: pulses symmetrical, No edema Peripheral Pulses: within normal limits - Abdominal General gastrointestinal: Present: soft, non-tender, non-distended, normal bowel sounds Male genitourinary: Present: normal - Integumentary Integumentary: Present: clear, warm, dry - Musculoskeletal Musculoskeletal: gait normal, strength equal bilaterally - Psychiatric Psychiatric: other (Patient is status post intubation) - Neurologic Neurologic: CNII-XII intact, moves all extremities, other (Patient is on vent) HEART Score - HEART Score Troponin: Troponin T < 0.010 ng/mL (0.00-0.029) 07/17/21 00:47 Results - Labs CBC & Chem 7: 07/17/21 00:47 07/17/21 01:45 Labs: Laboratory Last Values WBC 19.0 K/mm3 (4.5-11.0) H 07/17/21 00:47 RBC 5.74 M/mm3 (3.65-5.03) H 07/17/21 00:47 Hgb 16.1 gm/dl (11.8-15.2) H 07/17/21 00:47 Hct 51.0 % (35.5-45.6) H 07/17/21 00:47 MCV 89 fl (84-94) 07/17/21 00:47 MCH 28 pg (28-32) 07/17/21 00:47 MCHC 32 % (32-34) 07/17/21 00:47 RDW 12.3 % (13.2-15.2) L 07/17/21 00:47 Plt Count 246 K/mm3 (140-440) 07/17/21 00:47 Lymph # (Auto) Display Screen Fabricator 07/17/21 00:47 PT 14.6 Sec. (12.2-14.9) 07/17/21 00:47 INR 1.03 (0.87-1.13) 07/17/21 00:47 APTT 27.8 Sec. (24.2-36.6) 07/17/21 00:47 Thrombin Time 19.7 Sec. (15.1-19.6) H 07/17/21 00:47 ABG pH 7.245 pH Units (7.350-7.450) L 07/17/21 02:00 ABG pCO2 45.0 mm Hg 07/17/21 02:00 ABG pO2 200.9 mm Hg (80.0-90.0) H 07/17/21 02:00 ABG HCO3 19.1 mmol/L (20.0-26.0) L 07/17/21 02:00 ABG O2 Saturation 99.2 % (95.0-99.0) H 07/17/21 02:00 ABG O2 Content 24.1 (0.0-44) 07/17/21 02:00 ABG Base Excess -8.1 mmol/L (-2.0-3.0) L 07/17/21 02:00 ABG Hemoglobin 17.4 gm/dl (14.0-18.0) 07/17/21 02:00 ABG Carboxyhemoglobin 1.3 % (0.0-5.0) 07/17/21 02:00 ABG Methemoglobin 0.6 % (0.0-1.5) 07/17/21 02:00 VBG pH 7.015 (7.320-7.420) L* 07/17/21 00:47 Oxyhemoglobin 97.2 % (95.0-99.0) 07/17/21 02:00 FiO2 100 % 07/17/21 02:00 Sodium 132 mmol/L (137-145) L 07/17/21 01:45 Potassium 4.6 mmol/L (3.6-5.0) 07/17/21 01:45 Chloride 94.5 mmol/L (98-107) L 07/17/21 01:45 Carbon Dioxide 15 mmol/L (22-30) L 07/17/21 01:45 Anion Gap 27 mmol/L 07/17/21 01:45 BUN 14 mg/dL (9-20) 07/17/21 01:45 Creatinine 1.5 mg/dL (0.8-1.3) H 07/17/21 01:45 Estimated GFR > 60 ml/min 07/17/21 01:45 BUN/Creatinine Ratio 9 % 07/17/21 01:45 Glucose 540 mg/dL (75-100) H* 07/17/21 01:45 Calcium 9.1 mg/dL (8.4-10.2) 07/17/21 01:45 Magnesium 2.60 mg/dL (1.7-2.3) H 07/17/21 00:47 Total Bilirubin 0.50 mg/dL (0.1-1.2) 07/17/21 00:47 AST 23 units/L (5-40) 07/17/21 00:47 ALT 29 units/L (7-56) 07/17/21 00:47 Alkaline Phosphatase 143 units/L (35-129) H 07/17/21 00:47 Total Creatine Kinase 146 units/L (55-170) 07/17/21 00:47 CK-MB (CK-2) 2.9 ng/mL (0.0-4.0) 07/17/21 00:47 CK-MB (CK-2) Rel Index 1.9 (0-4) 07/17/21 00:47 Troponin T < 0.010 ng/mL (0.00-0.029) 07/17/21 00:47 Total Protein 7.0 g/dL (6.3-8.2) 07/17/21 00:47 Albumin 4.3 g/dL (3.9-5) 07/17/21 00:47 Albumin/Globulin Ratio 1.6 % 07/17/21 00:47 Salicylates < 0.3 mg/dL (2.8-20.0) L 07/17/21 00:47 Acetaminophen 5.0 ug/mL (10.0-30.0) L 07/17/21 00:47 Plasma/Serum Alcohol < 0.01 % (0-0.07) 07/17/21 00:47 - Imaging and Cardiology Chest x-ray: report reviewed CT Scan - head: report reviewed Assessment and Plan VTE prophylaxis?: Mechanical Plan of care discussed with patient/family: Yes - Patient Problems (1) Acute respiratory failure Current Visit: Yes Status: Acute Plan to address problem: Admit the patient to the ICU. NPO. Half-normal saline at the rate of 150/h. Patient is status post intubation. DuoNeb by nebulizer every 4 hours. Rocephin 2 g IV daily. Zithromax 500 mils IV daily. Will consult critical care evaluation blood culture sputum culture (2) DKA (diabetic ketoacidosis) Current Visit: Yes Status: Acute Plan to address problem: Put the patient on DKA pathway. NPO. Half-normal saline at at the rate of 150 cc/h. Insulin drip as per DKA protocol. Serial BMP. Will consult critical care evaluation (3) SVT (supraventricular tachycardia) Current Visit: Yes Status: Acute Plan to address problem: We will consult cardiology for evaluation. Echocardiogram. Patient is status post cardioversion (4) Seizure Current Visit: Yes Status: Acute Plan to address problem: Keppra 500 mg IV every 12 hours. EEG. Neurology evaluation (5) DVT prophylaxis Current Visit: Yes Status: Acute Plan to address problem: SCD for DVT prophylaxis. Pepcid 20 mg IV every 12 hours for GI prophylaxis. Patient is a full code
[2021-07-17] MEDS ORDERED: cefTRIAXone/NS 2 GM/100 ML 2 GM/100 ML BAG IV SCH (04:00)
[2021-07-17] MEDS ORDERED: SODIUM CHLORIDE 0.45% 1000 ML 1,000 ML IV SCH (04:00)
[2021-07-17] MEDS ORDERED: AZITHROMYCIN/NS 500 MG/250 ML 500 MG/250 ML BAG IV SCH (04:00)
[2021-07-17] MEDS ORDERED: INSULIN REGULAR, HUMAN 100 UNITS in SODIUM CHLORIDE 0.9% 99 ML IV SCH (04:00)
[2021-07-17] MEDS ORDERED: DEXTROSE 10% *Hypoglycemia IV PRN (04:02)
[2021-07-17 04:50] LABS: BUN/Creatinine Ratio 12; Blood Urea Nitrogen 17 mg/dL (9-20); Calcium 8.7 mg/dL (8.4-10.2); Hemolysis Index 32
[2021-07-17 05:23] LABS: Basophils % (Manual) 0 % (0.0-1.8); Myelocytes # (Manual) 0.4 K/mm3; Total Cells Counted 100
[2021-07-17 05:24] LABS: Platelet Estimate Consistent w Auto; Toxic Granulation 1+
[2021-07-17 06:21] LABS: BUN/Creatinine Ratio 13; Blood Urea Nitrogen 15 mg/dL (9-20); Calcium 8.8 mg/dL (8.4-10.2); Hemolysis Index 32
[2021-07-17] MEDS ORDERED: IPRATROPIUM/ALBUTEROL SULFATE 3 ML AMPUL.NEB IH SCH (08:00)
--- NOTE | 2021-07-17 09:10 | Consultation ---
History of Present Illness Consult date: 07/17/21 Reason for Consult: Seizure,altered mentation,intubated and sedated History of present illness: Altered mental status History of present illness: 50-year-old male with history of seizures and hyperglycemia was brought to the emergency room because of SVT, seizure, and hyperglycemia. patient reportedly had a seizure or convulsion at home, without trauma. EMS reports that they picked up the patient and he was not seizing, but he was somewhat altered and combative, moving 4 extremities, and hyperglycemic in the field. EMS reports that the patient is tachycardic, hyperglycemic in the field and hypertensive. EMS reports that prehospital EKG shows narrow complex regular tachycardia/SVT. EMS further reports that they gave 6 mg of adenosine, 12 mg of adenosine, without success. They did not attempt cardioversion, or defibrillation. They also reports that the patient had a convulsive event in the field, which they terminated with 10 mg of midazolam. On arrival to this emergency room, the patient is noted to be in a narrow complex regular tachycardia, and is breathing sonorously.patient was put on nonrebreather, and ER doctor emergently cardioverted with synchronized cardioversion at 200 J. The patient successfully converts into a sinus tachycardia. Post cardioversion, patient breathing sonorously and is not protecting his airway. Subsequently patient was intubated by the ER physician The patient had a CT scan of the brain, CT angiogram head and neck which was negative for acute findings. The emergency room patient WBC is 19.2, blood glucose 532 anion gap 37 bicarb 10 BUN 13 creatinine 1.4 Patient laboratory studies demonstrate diabetic ketoacidosis/metabolic acidosis, hemoconcentration, and a leukocytosis that is likely a stress reaction. pt. was intubated and sedated no witnessed seizure in ICU currently he is moving all limbs , cranial intact , he is on Deprivan #10 mc , and Versed#2 mc, and insulin Iv drip current glucose is 342 Past History Past Medical History: seizures Medications and Allergies Allergies Allergy/AdvReac Type Severity Reaction Status Date / Time No Known Allergies Allergy Unverified 04/22/20 01:27 Active Meds: Active Medications Acetaminophen (Acetaminophen 325 Mg Tab) 650 mg PO Q4H PRN PRN Reason: Pain MILD(1-3)/Fever >100.5/STEVENSON Albuterol (Albuterol 2.5 Mg/3 Ml Nebu) 2.5 mg IH Q3HRT PRN PRN Reason: Shortness Of Breath Albuterol/Ipratropium (Ipratropium/Albuterol Sulfate 3 Ml Ampul.Neb) 1 ampul IH Q6HRT HERMAN Dextrose (Dextrose 50% In Water (25gm) 50 Ml Syringe) 0 ml IV Q30MIN PRN; Protocol PRN Reason: Hypoglycemia Dextrose (Dextrose 50% In Water (25gm) 50 Ml Syringe) 0 ml IV Q30MIN PRN; Protocol PRN Reason: Hypoglycemia Famotidine (Famotidine 20 Mg/2 Ml Inj) 20 mg IV BID HERMAN Famotidine (Famotidine 20 Mg/2 Ml Inj) 20 mg IV BID HERMAN Hydromorphone HCl (Hydromorphone 1 Mg/1 Ml Inj) 0.5 mg IV Q3H PRN PRN Reason: Pain , Severe (7-10) Hydrophilic Ointment (Lip Therapy Vaseline) 1 applic TP Q2HR PRN PRN Reason: Dry Lips Propofol (Diprivan 10 Mg/Ml) 1,000 mg in 100 mls @ 12.927 mls/hr IV TITR HERMAN; Protocol Insulin Human Regular 100 (units/ Sodium Chloride) 100 mls @ 1 mls/hr IV TITR HERMAN; Protocol Last Admin: 07/17/21 02:50 Dose: 8 units/hr, 8 mls/hr Potassium Chloride/Dextrose/Sod Cl (D5w/0.45% Nacl/Kcl 20 Meq) 20 meq in 1,000 mls @ 125 mls/hr IV DIRECT HERMAN Midazolam HCl 100 mg/ Sodium (Chloride) 100 mls @ 1 mls/hr IV TITR HERMAN; Protocol Last Admin: 07/17/21 02:49 Dose: 1 mg/hr, 1 mls/hr Insulin Human Regular 100 (units/ Sodium Chloride) 100 mls @ 1 mls/hr IV TITR HERMAN; Protocol Sodium Chloride (Nacl 0.45% 1000 Ml) 1,000 mls @ 150 mls/hr IV DIRECT HERMAN Potassium Chloride/Dextrose/Sod Cl (D5w/0.45% Nacl/Kcl 20 Meq) 20 meq in 1,000 mls @ 125 mls/hr IV DIRECT HERMAN Levetiracetam 500 mg/ Dextrose 105 mls @ 400 mls/hr IV Q12HR HERMAN Midazolam HCl (Midazolam 2 Mg/2 Ml Inj) 2 mg IV Q10MIN PRN PRN Reason: Sedation Morphine Sulfate (Morphine 2 Mg/1 Ml Inj) 2 mg IV Q4H PRN PRN Reason: Pain, Moderate (4-6) Multi-Ingred Cream/Lotion/Oil/Oint (Mineral Oil/Petrolatum, White Ophth Oint 3.5 Gm) 1 applic OU Q4HR PRN PRN Reason: Dry Eye(s) Ondansetron HCl (Ondansetron 4 Mg/2 Ml Inj) 4 mg IV Q8H PRN PRN Reason: Nausea And Vomiting Senna/Docusate Sodium (Sennosides/Docusate Sodium 8.6/50 Mg Tab) 1 tab FEEDTUBE BID HERMAN Sodium Chloride (Sodium Chloride 0.9% 10 Ml Flush Syringe) 10 ml IV PRN PRN PRN Reason: LINE FLUSH Sodium Chloride (Sodium Chloride 0.9% 10 Ml Flush Syringe) 10 ml IV BID HERMAN Sodium Chloride (Sodium Chloride 0.9% 10 Ml Flush Syringe) 10 ml IV PRN PRN PRN Reason: LINE FLUSH Review of Systems All systems: negative Constitutional: fatigue, malaise, lethargy Neurological: change in mentation Past History Past Medical History: seizures Medications and Allergies Allergies Allergy/AdvReac Type Severity Reaction Status Date / Time No Known Allergies Allergy Unverified 04/22/20 01:27 Active Meds: Active Medications Acetaminophen (Acetaminophen 325 Mg Tab) 650 mg PO Q4H PRN PRN Reason: Pain MILD(1-3)/Fever >100.5/[facility]ENSON Albuterol (Albuterol 2.5 Mg/3 Ml Nebu) 2.5 mg IH Q3HRT PRN PRN Reason: Shortness Of Breath Albuterol/Ipratropium (Ipratropium/Albuterol Sulfate 3 Ml Ampul.Neb) 1 ampul IH Q6HRT HERMAN Dextrose (Dextrose 10% *Hypoglycemia) 0 ml IV PRN PRN; Protocol PRN Reason: Hypoglycemia Famotidine (Famotidine 20 Mg/2 Ml Inj) 20 mg IV BID HERMAN Hydromorphone HCl (Hydromorphone 1 Mg/1 Ml Inj) 0.5 mg IV Q3H PRN PRN Reason: Pain , Severe (7-10) Hydrophilic Ointment (Lip Therapy Vaseline) 1 applic TP Q2HR PRN PRN Reason: Dry Lips Propofol (Diprivan 10 Mg/Ml) 1,000 mg in 100 mls @ 12.927 mls/hr IV TITR HERMAN; Protocol Last Admin: 07/17/21 06:36 Dose: 25 mcg/kg/min, 12.927 mls/hr Insulin Human Regular 100 (units/ Sodium Chloride) 100 mls @ 1 mls/hr IV TITR HERMAN; Protocol Last Titration: 07/17/21 08:30 Dose: 4 units/hr, 4 mls/hr Midazolam HCl 100 mg/ Sodium (Chloride) 100 mls @ 1 mls/hr IV TITR HERMAN; Protocol Last Titration: 07/17/21 03:51 Dose: 2 mg/hr, 2 mls/hr Sodium Chloride (Nacl 0.45% 1000 Ml) 1,000 mls @ 150 mls/hr IV DIRECT HERMAN Potassium Chloride/Dextrose/Sod Cl (D5w/0.45% Nacl/Kcl 20 Meq) 20 meq in 1,000 mls @ 125 mls/hr IV DIRECT HERMAN Levetiracetam 500 mg/ Dextrose 105 mls @ 400 mls/hr IV Q12H HERMAN Ceftriaxone Sodium (Rocephin/Ns 2 Gm/100 Ml) 2 gm in 100 mls @ 200 mls/hr IV Q24H HERMAN; Protocol Last Admin: 07/17/21 04:13 Dose: 200 mls/hr Azithromycin (Zithromax/Ns) 500 mg in 250 mls @ 250 mls/hr IV Q24H HERMAN Last Admin: 07/17/21 05:06 Dose: 250 mls/hr Midazolam HCl (Midazolam 2 Mg/2 Ml Inj) 2 mg IV Q10MIN PRN PRN Reason: Sedation Morphine Sulfate (Morphine 2 Mg/1 Ml Inj) 2 mg IV Q4H PRN PRN Reason: Pain, Moderate (4-6) Multi-Ingred Cream/Lotion/Oil/Oint (Mineral Oil/Petrolatum, White Ophth Oint 3.5 Gm) 1 applic OU Q4HR PRN PRN Reason: Dry Eye(s) Ondansetron HCl (Ondansetron 4 Mg/2 Ml Inj) 4 mg IV Q8H PRN PRN Reason: Nausea And Vomiting Senna/Docusate Sodium (Sennosides/Docusate Sodium 8.6/50 Mg Tab) 1 tab FEEDTUBE BID HERMAN Sodium Chloride (Sodium Chloride 0.9% 10 Ml Flush Syringe) 10 ml IV BID HERMAN Sodium Chloride (Sodium Chloride 0.9% 10 Ml Flush Syringe) 10 ml IV PRN PRN PRN Reason: LINE FLUSH Physical Examination - Vital Signs Vital Signs: Vital Signs Pulse Resp Pulse Ox 154 H 30 H 94 07/17/21 00:07 07/17/21 00:07 07/17/21 00:07 - Constitutional General appearance: comfortable - EENT EENT: Present: PERRL, mucous membranes moist - Respiratory Respiratory: Present: lungs clear, rhonchi - Cardiovascular Cardiovascular: Present: regular rate, normal S1, normal S2 Extremities: Present: no peripheral edema bilatateraly, no clubbing, cyanosis - Gastrointestinal Gastrointestinal: Present: normoactive bowel sounds - Integumentary Integumentary: Present: normal - Neurologic Cranial nerve examination: PERRL, EOMI, intact Speech examination: other (intubated) Detailed motor examination: grossly full strength in Results - Laboratory Findings CBC and BMP: 07/17/21 00:47 07/17/21 11:54 Abnormal Lab Findings: Abnormal Labs 07/17/21 07/17/21 07/17/21 00:47 00:47 00:47 WBC 19.0 H RBC 5.74 H Hgb 16.1 H Hct 51.0 H RDW 12.3 L Seg Neutrophils # Man 12.7 H Thrombin Time 19.7 H ABG pH ABG pO2 ABG HCO3 ABG O2 Saturation ABG Base Excess VBG pH Sodium 135 L Chloride 92.9 L Carbon Dioxide 10 L Creatinine 1.4 H Glucose 532 H* POC Glucose Phosphorus Magnesium 2.60 H Alkaline Phosphatase 143 H Salicylates Acetaminophen 07/17/21 07/17/21 07/17/21 00:47 00:47 00:47 WBC RBC Hgb Hct RDW Seg Neutrophils # Man Thrombin Time ABG pH ABG pO2 ABG HCO3 ABG O2 Saturation ABG Base Excess VBG pH 7.015 L* Sodium Chloride Carbon Dioxide Creatinine Glucose POC Glucose Phosphorus Magnesium Alkaline Phosphatase Salicylates < 0.3 L Acetaminophen 5.0 L 07/17/21 07/17/21 07/17/21 01:45 02:00 03:44 WBC RBC Hgb Hct RDW Seg Neutrophils # Man Thrombin Time ABG pH 7.245 L ABG pO2 200.9 H ABG HCO3 19.1 L ABG O2 Saturation 99.2 H ABG Base Excess -8.1 L VBG pH Sodium 132 L 132 L Chloride 94.5 L Carbon Dioxide 15 L 18 L Creatinine 1.5 H 1.4 H Glucose 540 H* 545 H* POC Glucose Phosphorus Magnesium Alkaline Phosphatase Salicylates Acetaminophen 07/17/21 07/17/21 07/17/21 03:47 03:58 05:42 WBC RBC Hgb Hct RDW Seg Neutrophils # Man Thrombin Time ABG pH ABG pO2 ABG HCO3 ABG O2 Saturation ABG Base Excess VBG pH Sodium Chloride Carbon Dioxide 20 L Creatinine Glucose 342 H POC Glucose 483 H Phosphorus 2.10 L Magnesium 2.50 H Alkaline Phosphatase Salicylates Acetaminophen 07/17/21 07/17/21 07/17/21 06:36 07:24 08:26 WBC RBC Hgb Hct RDW Seg Neutrophils # Man Thrombin Time ABG pH ABG pO2 ABG HCO3 ABG O2 Saturation ABG Base Excess VBG pH Sodium Chloride Carbon Dioxide Creatinine Glucose POC Glucose 360 H 264 H 249 H Phosphorus Magnesium Alkaline Phosphatase Salicylates Acetaminophen Assessment and Plan Assessment and Plan 50-year-old male with history of seizures and hyperglycemia was brought to the emergency room because of SVT, seizure, and hyperglycemia. patient reportedly had a seizure or convulsion at home, without trauma. EMS reports that they picked up the patient and he was not seizing, but he was somewhat altered and combative, moving 4 extremities, and hyperglycemic in the field. - Patient Problems # Acute respiratory failure - Intubated and sedated -Move all limbs to stimuli, slightly follow command -currently on Propofol and versed # DKA (diabetic ketoacidosis) -Initial Glucose#545 -Hco3 is #10 -strarted on IV fluid and Insulin IV # SVT (supraventricular tachycardia) -Cardiology for evaluation. - Echocardiogram. - Patient is status post cardioversion -Consider MRI brain when stable -UDS is negative # Seizure -Hx of seizure -? compliance with medications -MRI brain when stable -EEG today -cut sedation as possible _Keppra 500 mg Iv Bid # DVT prophylaxis -SCD for DVT prophylaxis. - Pepcid 20 mg IV every 12 hours for GI prophylaxis. - Patient is a full code Critical care statement The high probability of a clinically significant sudden or life-threatening deterioration of the cardiorespiratory system and endocrine system required my full and direct attention, intervention and postoperative management. The aggregate critical care time was 40 minutes. The time is in addition to time spent performing reported procedures but includes the followin: Data review and interpretation 2: Patient assessment and monitoring of vital signs 3: Documentation 4:: Medication orders and management
[2021-07-17] MEDS ORDERED: SODIUM CHLORIDE 0.9% 50 ML IVPB IV PRN (09:16)
[2021-07-17] MEDS: FAMOTIDINE 20 MG/2 ML INJ IV SCH ×2 (09:30→21:55)
[2021-07-17] MEDS: SENNOSIDES/DOCUSATE SODIUM 8.6/50 MG TAB FEEDTUBE SCH ×2 (09:31→22:00)
--- NOTE | 2021-07-17 09:52 | Consultation ---
History of Present Illness Consult date: 07/17/21 Requesting physician: FERN SANCHEZ Reason for consult: other (SVT, s/p cardioversion) Past History Past Medical History: seizures Medications and Allergies Allergies Allergy/AdvReac Type Severity Reaction Status Date / Time No Known Allergies Allergy Unverified 04/22/20 01:27 Active Meds: Active Medications Acetaminophen (Acetaminophen 325 Mg Tab) 650 mg PO Q4H PRN PRN Reason: Pain MILD(1-3)/Fever >100.5/STEVENSON Albuterol (Albuterol 2.5 Mg/3 Ml Nebu) 2.5 mg IH Q3HRT PRN PRN Reason: Shortness Of Breath Albuterol/Ipratropium (Ipratropium/Albuterol Sulfate 3 Ml Ampul.Neb) 1 ampul IH Q6HRT [facility] Last Admin: 07/17/21 08:50 Dose: 1 ampul Dextrose (Dextrose 10% *Hypoglycemia) 0 ml IV PRN PRN; Protocol PRN Reason: Hypoglycemia Famotidine (Famotidine 20 Mg/2 Ml Inj) 20 mg IV BID [facility] Last Admin: 07/17/21 09:30 Dose: 20 mg Hydromorphone HCl (Hydromorphone 1 Mg/1 Ml Inj) 0.5 mg IV Q3H PRN PRN Reason: Pain , Severe (7-10) Hydrophilic Ointment (Lip Therapy Vaseline) 1 applic TP Q2HR PRN PRN Reason: Dry Lips Propofol (Diprivan 10 Mg/Ml) 1,000 mg in 100 mls @ 12.927 mls/hr IV TITR HERMAN; Protocol Last Titration: 07/17/21 09:30 Dose: 25 mcg/kg/min, 12.927 mls/hr Insulin Human Regular 100 (units/ Sodium Chloride) 100 mls @ 1 mls/hr IV TITR HERMAN; Protocol Last Titration: 07/17/21 09:30 Dose: 5 units/hr, 5 mls/hr Midazolam HCl 100 mg/ Sodium (Chloride) 100 mls @ 1 mls/hr IV TITR HERMAN; Protocol Last Titration: 07/17/21 09:30 Dose: 3 mg/hr, 3 mls/hr Sodium Chloride (Nacl 0.45% 1000 Ml) 1,000 mls @ 150 mls/hr IV DIRECT HERMAN Potassium Chloride/Dextrose/Sod Cl (D5w/0.45% Nacl/Kcl 20 Meq) 20 meq in 1,000 mls @ 125 mls/hr IV DIRECT HERMAN Levetiracetam 500 mg/ Dextrose 105 mls @ 400 mls/hr IV Q12H [facility] Ceftriaxone Sodium (Rocephin/Ns 2 Gm/100 Ml) 2 gm in 100 mls @ 200 mls/hr IV Q24H [facility]; Protocol Last Admin: 07/17/21 04:13 Dose: 200 mls/hr Azithromycin (Zithromax/Ns) 500 mg in 250 mls @ 250 mls/hr IV Q24H [facility] Last Admin: 07/17/21 05:06 Dose: 250 mls/hr Midazolam HCl (Midazolam 2 Mg/2 Ml Inj) 2 mg IV Q10MIN PRN PRN Reason: Sedation Morphine Sulfate (Morphine 2 Mg/1 Ml Inj) 2 mg IV Q4H PRN PRN Reason: Pain, Moderate (4-6) Multi-Ingred Cream/Lotion/Oil/Oint (Mineral Oil/Petrolatum, White Ophth Oint 3.5 Gm) 1 applic OU Q4HR PRN PRN Reason: Dry Eye(s) Ondansetron HCl (Ondansetron 4 Mg/2 Ml Inj) 4 mg IV Q8H PRN PRN Reason: Nausea And Vomiting Senna/Docusate Sodium (Sennosides/Docusate Sodium 8.6/50 Mg Tab) 1 tab FEEDTUBE BID [facility] Last Admin: 07/17/21 09:31 Dose: Not Given Sodium Chloride (Sodium Chloride 0.9% 10 Ml Flush Syringe) 10 ml IV BID [facility] Last Admin: 07/17/21 09:31 Dose: 10 ml Sodium Chloride (Sodium Chloride 0.9% 10 Ml Flush Syringe) 10 ml IV PRN PRN PRN Reason: LINE FLUSH Sodium Chloride (Sodium Chloride 0.9% 50 Ml Ivpb) 10 ml IV PRN PRN PRN Reason: FLUSH Physical Examination Vital signs: Vital Signs Pulse Resp Pulse Ox 154 H 30 H 94 07/17/21 00:07 07/17/21 00:07 07/17/21 00:07 Results - Laboratory Findings CBC and BMP: 07/17/21 00:47 07/17/21 05:42 ABG ABG pH 7.245 pH Units (7.350-7.450) L 07/17/21 02:00 ABG pCO2 45.0 mm Hg 07/17/21 02:00 ABG pO2 200.9 mm Hg (80.0-90.0) H 07/17/21 02:00 ABG O2 Saturation 99.2 % (95.0-99.0) H 07/17/21 02:00 PT/INR, D-dimer PT 14.6 Sec. (12.2-14.9) 07/17/21 00:47 INR 1.03 (0.87-1.13) 07/17/21 00:47 Abnormal lab findings: Abnormal Labs 07/17/21 07/17/21 07/17/21 00:47 00:47 00:47 WBC 19.0 H RBC 5.74 H Hgb 16.1 H Hct 51.0 H RDW 12.3 L Seg Neutrophils # Man 12.7 H Thrombin Time 19.7 H ABG pH ABG pO2 ABG HCO3 ABG O2 Saturation ABG Base Excess VBG pH Sodium 135 L Chloride 92.9 L Carbon Dioxide 10 L Creatinine 1.4 H Glucose 532 H* POC Glucose Phosphorus Magnesium 2.60 H Alkaline Phosphatase 143 H Salicylates Acetaminophen 07/17/21 07/17/21 07/17/21 00:47 00:47 00:47 WBC RBC Hgb Hct RDW Seg Neutrophils # Man Thrombin Time ABG pH ABG pO2 ABG HCO3 ABG O2 Saturation ABG Base Excess VBG pH 7.015 L* Sodium Chloride Carbon Dioxide Creatinine Glucose POC Glucose Phosphorus Magnesium Alkaline Phosphatase Salicylates < 0.3 L Acetaminophen 5.0 L 07/17/21 07/17/21 07/17/21 01:45 02:00 03:44 WBC RBC Hgb Hct RDW Seg Neutrophils # Man Thrombin Time ABG pH 7.245 L ABG pO2 200.9 H ABG HCO3 19.1 L ABG O2 Saturation 99.2 H ABG Base Excess -8.1 L VBG pH Sodium 132 L 132 L Chloride 94.5 L Carbon Dioxide 15 L 18 L Creatinine 1.5 H 1.4 H Glucose 540 H* 545 H* POC Glucose Phosphorus Magnesium Alkaline Phosphatase Salicylates Acetaminophen 07/17/21 07/17/21 07/17/21 03:47 03:58 05:42 WBC RBC Hgb Hct RDW Seg Neutrophils # Man Thrombin Time ABG pH ABG pO2 ABG HCO3 ABG O2 Saturation ABG Base Excess VBG pH Sodium Chloride Carbon Dioxide 20 L Creatinine Glucose 342 H POC Glucose 483 H Phosphorus 2.10 L Magnesium 2.50 H Alkaline Phosphatase Salicylates Acetaminophen 07/17/21 07/17/21 07/17/21 06:36 07:24 08:26 WBC RBC Hgb Hct RDW Seg Neutrophils # Man Thrombin Time ABG pH ABG pO2 ABG HCO3 ABG O2 Saturation ABG Base Excess VBG pH Sodium Chloride Carbon Dioxide Creatinine Glucose POC Glucose 360 H 264 H 249 H Phosphorus Magnesium Alkaline Phosphatase Salicylates Acetaminophen 07/17/21 09:27 WBC RBC Hgb Hct RDW Seg Neutrophils # Man Thrombin Time ABG pH ABG pO2 ABG HCO3 ABG O2 Saturation ABG Base Excess VBG pH Sodium Chloride Carbon Dioxide Creatinine Glucose POC Glucose 261 H Phosphorus Magnesium Alkaline Phosphatase Salicylates Acetaminophen Assessment and Plan 50 y/o male admitted with hyperglycemia, SVT s/po cardioversion, admitted post cardioversion as patient was not protecting his airway. 1. ABG stat this am 2. IF abg is adequate, turn off sedation and extubate 3. If extubated, assess swallowing and feed 4. Needs long acting insulin, check A1c 5. Follow Neuro Recs 6. Guarded Prognosis. CCT 31 minutes.
[2021-07-17] MEDS ORDERED: FAMOTIDINE 20 MG/2 ML INJ IV SCH (10:00)
[2021-07-17 10:10] LABS: Bilirubin,Urine NEG (Negative); Blood,Urine MOD (Negative); Color,Urine Straw (Yellow); Protein,Urine <15 mg/dL mg/dL (Negative); Urobilinogen,Urine < 2.0 mg/dL (<2.0)
[2021-07-17 10:18] LABS: Amphetamine Screen,Urine Negative; Cannabinoid Screen,Urine Negative; Cocaine Screen,Urine Negative; Methadone Screen,Urine Negative; Opiate Screen,Urine Negative
[2021-07-17 10:31] LABS: RBC,Urine < 1.0 /HPF (0.0-6.0)
[2021-07-17 10:32] LABS: WBC,Urine < 1.0 /HPF (0.0-6.0)
[2021-07-17 11:17] LABS: Benzodiazepines Screen,Urine Positive
[2021-07-17] MEDS: D5W/0.45% NACL/KCL 20 MEQ 20 MEQ/1,000 ML BAG IV SCH ×2 (11:45→23:18)
[2021-07-17] MEDS: MIDAZOLAM 2 MG/2 ML INJ IV PRN ×2 (12:20→13:47)
--- NOTE | 2021-07-17 12:23 | Consultation ---
History of Present Illness Consult date: 07/17/21 Requesting physician: JULIA CANO Consult reason: other (SVT) History of present illness: Patient 50-year-old male with a past medical history of seizures and hyperglycemia who was brought to the ED due to seizures and reports of SVT. History is taken from chart due to patient being intubated and sedated at time of interview. Per documentation patient had a seizure at home without trauma. EMS reported that when they picked patient up he was not seizing but was combative and had altered mental status and found to be hyperglycemic. EMS reports that there EKG showed SVT. Patient was given adenosine x2 but was not cardioverted. In ED patient was noted to be sinus tach but was cardioverted. Post cardioversion is documented patient was unable to protect airway and intubated. Of note ED work-up showed patient to have WBC of 19.2, glucose 532, bicarb 10, and elevated creatinine. Patient is previously unknown to our practice. Cardiology is consulted for SVT Past History Past Medical History: seizures Medications and Allergies Allergies Allergy/AdvReac Type Severity Reaction Status Date / Time No Known Allergies Allergy Unverified 04/22/20 01:27 Active Meds: Active Medications Acetaminophen (Acetaminophen 325 Mg Tab) 650 mg PO Q4H PRN PRN Reason: Pain MILD(1-3)/Fever >100.5/STEVENSON Albuterol (Albuterol 2.5 Mg/3 Ml Nebu) 2.5 mg IH Q3HRT PRN PRN Reason: Shortness Of Breath Dextrose (Dextrose 10% *Hypoglycemia) 0 ml IV PRN PRN; Protocol PRN Reason: Hypoglycemia Famotidine (Famotidine 20 Mg/2 Ml Inj) 20 mg IV BID [facility] Last Admin: 07/17/21 09:30 Dose: 20 mg Hydromorphone HCl (Hydromorphone 1 Mg/1 Ml Inj) 0.5 mg IV Q3H PRN PRN Reason: Pain , Severe (7-10) Hydrophilic Ointment (Lip Therapy Vaseline) 1 applic TP Q2HR PRN PRN Reason: Dry Lips Propofol (Diprivan 10 Mg/Ml) 1,000 mg in 100 mls @ 12.927 mls/hr IV TITR HERMAN; Protocol Last Titration: 07/17/21 10:00 Dose: 15 mcg/kg/min, 7.756 mls/hr Insulin Human Regular 100 (units/ Sodium Chloride) 100 mls @ 1 mls/hr IV TITR [facility]MAN; Protocol Last Titration: 07/17/21 11:38 Dose: 3 units/hr, 3 mls/hr Midazolam HCl 100 mg/ Sodium (Chloride) 100 mls @ 1 mls/hr IV TITR HERMAN; Protocol Last Titration: 07/17/21 11:45 Dose: 1 mg/hr, 1 mls/hr Sodium Chloride (Nacl 0.45% 1000 Ml) 1,000 mls @ 150 mls/hr IV DIRECT HERMAN Last Infusion: 07/17/21 11:45 Dose: 0 mls/hr Potassium Chloride/Dextrose/Sod Cl (D5w/0.45% Nacl/Kcl 20 Meq) 20 meq in 1,000 mls @ 125 mls/hr IV DIRECT [facility] Last Admin: 07/17/21 11:45 Dose: 125 mls/hr Levetiracetam 500 mg/ Dextrose 105 mls @ 400 mls/hr IV Q12H [facility] Midazolam HCl (Midazolam 2 Mg/2 Ml Inj) 2 mg IV Q10MIN PRN PRN Reason: Sedation Morphine Sulfate (Morphine 2 Mg/1 Ml Inj) 2 mg IV Q4H PRN PRN Reason: Pain, Moderate (4-6) Multi-Ingred Cream/Lotion/Oil/Oint (Mineral Oil/Petrolatum, White Ophth Oint 3.5 Gm) 1 applic OU Q4HR PRN PRN Reason: Dry Eye(s) Ondansetron HCl (Ondansetron 4 Mg/2 Ml Inj) 4 mg IV Q8H PRN PRN Reason: Nausea And Vomiting Senna/Docusate Sodium (Sennosides/Docusate Sodium 8.6/50 Mg Tab) 1 tab FEEDTUBE BID [facility] Last Admin: 07/17/21 09:31 Dose: Not Given Sodium Chloride (Sodium Chloride 0.9% 10 Ml Flush Syringe) 10 ml IV BID [facility] Last Admin: 07/17/21 09:31 Dose: 10 ml Sodium Chloride (Sodium Chloride 0.9% 10 Ml Flush Syringe) 10 ml IV PRN PRN PRN Reason: LINE FLUSH Sodium Chloride (Sodium Chloride 0.9% 50 Ml Ivpb) 10 ml IV PRN PRN PRN Reason: FLUSH Review of Systems ROS unobtainable: due to endotracheal tube, due to mental status Physical Examination Vital Signs Pulse Resp Pulse Ox 154 H 30 H 94 07/17/21 00:07 07/17/21 00:07 07/17/21 00:07 General appearance: other (Intubated and sedated) HEENT: Positive: Normocephaly Neck: Positive: trachea midline Cardiac: Positive: Reg Rate and Rhythm Lungs: Positive: Ventilated Respirations Neuro: Positive: Other (Unable to assess due to intubated and sedated) Abdomen: Positive: Soft Skin: Negative: Rash, Suspicious Lesions, Ulceration Extremities: Present: upper extr. pulses. Absent: edema Results 07/17/21 00:47 07/17/21 05:42 Cardiac Enzymes 07/17/21 Range/Units 00:47 AST 23 (5-40) units/L CK-MB (CK-2) 2.9 (0.0-4.0) ng/mL Coagulation 07/17/21 Range/Units 00:47 PT 14.6 (12.2-14.9) Sec. INR 1.03 (0.87-1.13) APTT 27.8 (24.2-36.6) Sec. CBC 07/17/21 Range/Units 00:47 WBC 19.0 H (4.5-11.0) K/mm3 RBC 5.74 H (3.65-5.03) M/mm3 Hgb 16.1 H (11.8-15.2) gm/dl Hct 51.0 H (35.5-45.6) % Plt Count 246 (140-440) K/mm3 Lymph # (Auto) [employer] Comprehensive Metabolic Panel 07/17/21 07/17/21 07/17/21 Range/Units 00:47 01:45 03:44 Sodium 135 L 132 L 132 L (137-145) mmol/L Potassium 4.5 4.6 4.6 (3.6-5.0) mmol/L Chloride 92.9 L 94.5 L 99.8 (98-107) mmol/L Carbon Dioxide 10 L 15 L 18 L (22-30) mmol/L BUN 13 14 17 (9-20) mg/dL Creatinine 1.4 H 1.5 H 1.4 H (0.8-1.3) mg/dL Glucose 532 H* 540 H* 545 H* (75-100) mg/dL Calcium 9.0 9.1 8.7 (8.4-10.2) mg/dL AST 23 (5-40) units/L ALT 29 (7-56) units/L Alkaline Phosphatase 143 H (35-129) units/L Total Protein 7.0 (6.3-8.2) g/dL Albumin 4.3 (3.9-5) g/dL 07/17/21 Range/Units 05:42 Sodium 139 D (137-145) mmol/L Potassium 4.2 (3.6-5.0) mmol/L Chloride 105.5 (98-107) mmol/L Carbon Dioxide 20 L (22-30) mmol/L BUN 15 (9-20) mg/dL Creatinine 1.2 (0.8-1.3) mg/dL Glucose 342 H (75-100) mg/dL Calcium 8.8 (8.4-10.2) mg/dL AST (5-40) units/L ALT (7-56) units/L Alkaline Phosphatase (35-129) units/L Total Protein (6.3-8.2) g/dL Albumin (3.9-5) g/dL - Imaging and Cardiology Echo: pending EKG interpretations - Telemetry EKG Rhythm: Sinus Tachycardia - EKG Sinus rhythms and dysrhythmias: sinus tachycardia Assessment and Plan Patient 50-year-old male with a past medical history of seizures and hyperglycemia who was brought to the ED due to seizures and reports of SVT Seizures- neurology following SVT? Acute respiratory failure-Pulmonlogy following Hyperglycemia Leukocytosis Hypermagnesemia Plan: EKG shows sinus tach 110 no acute ischemic changes. Trop negx1 Unclear as to if the patient went to SVT no EKG to show it. Patient currently sinus 96 on monitor with no events Echo pending Continue to monitor on telemetry Patient seen in conjunction with Dr. Solis who agrees with this plan of care - Patient Problems (1) Leukocytosis Current Visit: Yes Status: Acute (2) Hypermagnesemia Current Visit: Yes Status: Acute (3) Acute respiratory failure Current Visit: Yes Status: Acute (4) SVT (supraventricular tachycardia) Current Visit: Yes Status: Acute (5) Seizure Current Visit: Yes Status: Acute
[2021-07-17 12:32] LABS: BUN/Creatinine Ratio 15; Blood Urea Nitrogen 16 mg/dL (9-20); Calcium 9.2 mg/dL (8.4-10.2); Hemolysis Index 23
[2021-07-17] MEDS: levETIRAcetam 500 MG in DEXTROSE 5% IN WATER 100 ML IV SCH (14:05)
--- NOTE | 2021-07-17 16:58 | Event Note ---
<KUNBREN - Last Filed: 07/17/21 16:59> Date: 07/17/21 This is a 50-year-old male with known past medical history of seizures and hyperglycemia admitted for seizures, stress induced hyperglycemia, and SVT s/p cardioversion in the ED Patient seen and examined at the bedside. Intubated and sedated, on propofol and versed RASS -2 to -3. Vent [id number]%,6,28,450. On insulin gtt and IVF. Normotensive and SR/ST on the monitor, cardiology on consult, 2D Echo pending. D/w CCM plan for SAT and possible extubation today. Continue insulin gtt per protocol, if extubate and patient can tolerate PO okay to transition to subQ insulin. NonCCT 60 min <DOLLY DE JESUS - Last Filed: 07/18/21 10:16> I saw and evaluated the patient. Discussed with the nurse practitioner and agree with their findings and plan as documented in this note.
--- NOTE | 2021-07-17 18:38 | Event Note ---
<BREN TRISTAN - Last Filed: 07/17/21 18:29> Date: 07/17/21 Received call from RN stating that patient is requesting to leave AMA. Patient was seen at the bedside. Patient is fully AAOX4, able to answer and hold a conservation appropriately. However, patient did appear very drowsy and weak, unable to sit upright without assistance. I had a thorough discussion with patient in regards to his current condition, he stated that he wanted to leave because he couldn't get any water. He voiced that his mouth is very dry and would like to drink some water. Bed swallow screen was performed, patient tolerated it well and water was provided. At this time patient is calm and cooperative, stated that he will stay overnight. Patient's was called and she also voiced understanding of the info provided. All questions and concerns have been voiced at this time. RN was also at the bedside. <DOLLY DE JESUS - Last Filed: 07/18/21 10:14> I saw and evaluated the patient. Discussed with the nurse practitioner and agree with their findings and plan as documented in this note.
[2021-07-17 19:33] LABS: BUN/Creatinine Ratio 11; Blood Urea Nitrogen 13 mg/dL (9-20); Hemolysis Index 18
[2021-07-18] MEDS: levETIRAcetam 500 MG in DEXTROSE 5% IN WATER 100 ML IV SCH (01:50)
[2021-07-18 01:54] LABS: BUN/Creatinine Ratio 9; Blood Urea Nitrogen 10 mg/dL (9-20); Calcium 8.8 mg/dL (8.4-10.2); Hemolysis Index 5
[2021-07-18] MEDS ORDERED: POTASSIUM CHLORIDE ER 20 MEQ TAB PO ONE (04:00)
[2021-07-18 07:42] LABS: Basophils # (Auto) 0.1 K/mm3 (0.0-0.1); Basophils % (Auto) 0.5 % (0.0-1.8); Eosinophils # (Auto) 0.4 K/mm3 (0.0-0.4); Eosinophils % (Auto) 3.4 % (0.0-4.3); Hematocrit 45.2 % (35.5-45.6); Hemoglobin 15.2 gm/dl (11.8-15.2); Lymphocytes # (Auto) 1.7 K/mm3 (1.2-5.4); Lymphocytes % (Auto) 14.1 % (13.4-35.0); Mean Corpuscular HGB Conc 34 % (32-34); Mean Corpuscular Volume 85 fl (84-94); Monocytes # (Auto) 0.9 K/mm3 (0.0-0.8); Monocytes % (Auto) 7.2 % (0.0-7.3); Platelet Count 154 K/mm3 (140-440); Red Blood Count 5.34 M/mm3 (3.65-5.03); Red Cell Distribution Width 13.2 % (13.2-15.2)
[2021-07-18] MEDS ORDERED: DEXTROSE 50% IN WATER (25GM) 50 ML SYRINGE IV PRN (07:45)
--- NOTE | 2021-07-18 08:34 | Emergency Department Report ---
Blank Doc - Documentation Documentation: [facility] Consult Note # Demographics Consult Type: General Neurology Patient Location: Emergency Room First Name: Olman Last Name: Carmel Date of : 1970 Age: 50 Gender: Male Facility: [facility] Time of Initial Page (Eastern Time): 07/17/2021, 01:41 Time of Return Call (Eastern Time): 07/17/2021, 01:41 Phone Only Consult: 50 yo man hx of seizure disorder and hyperglycemia presented today with seizures, DKA , SVT. Given 10 mg midazolam. Sp cardio version for svt in ER.In DKA in er being admitted to icu. Cerebral imaging unremarkable. Agree with admission to ICU. LIkely seizure provoked by hyperglycemia. sedation with midazolam / propofol keppra loaded in ER. # [employer] Telemedicine: phone only
[2021-07-18 08:35] LABS: Alanine Aminotransferase 149 units/L (7-56); Albumin 3.9 g/dL (3.9-5); BUN/Creatinine Ratio 9; Blood Urea Nitrogen 8 mg/dL (9-20); Calcium 9.1 mg/dL (8.4-10.2); Hemolysis Index 24
[2021-07-18] MEDS: INSULIN NPH/REGULAR 70/30 INJ SUB-Q SCH ×2 (09:01→20:15)
[2021-07-18] MEDS: FAMOTIDINE 20 MG/2 ML INJ IV SCH (09:01)
[2021-07-18] MEDS: SENNOSIDES/DOCUSATE SODIUM 8.6/50 MG TAB FEEDTUBE SCH ×2 (09:05→21:52)
[2021-07-18] MEDS ORDERED: levETIRAcetam 500 MG/5 ML ORAL LIQD PO SCH (10:00)
--- NOTE | 2021-07-18 10:46 | Progress Note ---
<BREN TRISTAN - Last Filed: 07/18/21 16:36> Assessment and Plan Assessment and plan: This is a 50-year-old male with known past medical history of seizures and hyperglycemia admitted for seizures, stress induced hyperglycemia, and SVT s/p cardioversion in the ED Hospital Course to Date: 07/17: Patient seen and examined at the bedside. Intubated and sedated, on propofol and versed RASS -2 to -3. Vent [place]-XAEV-53%,6,28,450. On insulin gtt and IVF. Normotensive and SR/ST on the monitor, cardiology on consult, 2D Echo pending. D/w CCM plan for SAT and possible extubation today. Continue insulin gtt per protocol, if extubate and patient can tolerate PO okay to transition to subQ insulin. 07/18: Patient is s/p extubation now stable on RA this am. Pass bedside swallow, tolerating PO intake, will transitioned to SubQ insulin. Generalized weakness noted, PT consulted. Patient is stable for transfer to the floor. Assessment and Plan #Acute Hypoxemic Respiratory Failure - Intubated in the ED on 07/17 for aiway protection - S/p extubation on 07/17 - Currently on RA, SPO2 above 95% - O2 supplementation is on stand by - Aspiration precaution HOB above 30 - Continue SPO2 monitoring for SPO2 goal above 92% #DKA (diabetic ketoacidosis) - Transitioned to SubQ insulin - SSI ACHS and Basal NPH BID - Consistent carb diet ordered - Monitor and replace electrolytes as needed -Trend BMP #SVT (supraventricular tachycardia) - Report of runs of SVT in the ED - s/p Cardioversion in the ED converted to ST - Remains in ST this am - Cardiology on consult, appreciated recommendations - 2D echo noted with normal EF #Seizure - Per patient he usually get a seizures when BG is high, not on any medications at home - Neurology on Consult, appreciated recommendations - EEG pending - Continue Keppra BID - PRN Ativan for seizures - Glycemic control - PT eval and Treat #GI/DVT prophylaxis - Continue PPI- Pepid - AC- Lovenox - SCDs to bilateral lower extremities while in bed The high probability of a clinically significant, sudden or life threatening deterioration of the [Respiratory, CV, Endo] system(s) required my full and direct attention, intervention and personal management. The aggregate critical care time was [60] minutes. This time is in addition to time spent performing reported procedures but includes the following: [x] Data Review and interpretation [x] Patient assessment and monitoring of vital signs [x] Documentation [x] Medication orders and management Disposition Plan: ICU Total Time Spent with Patient (Minutes): 60 History Interval history: Patient seen and examined at the bedside. Fully AAO, on RA SPO2 above 95%, denied any pain nor any discomfort. Per RN patient was noncooperative throughout the night, wanting to leave AMA. Otherwise ALYX overnight Hospitalist Physical - Constitutional Vitals: Temp Pulse Resp BP Pulse Ox 98 F 102 H 16 135/80 97 07/18/21 08:00 07/18/21 10:10 07/18/21 10:10 07/18/21 10:10 07/18/21 09:30 General appearance: Present: no acute distress - EENT Eyes: Present: PERRL, EOM intact ENT: hearing intact, clear oral mucosa - Neck Neck: Present: normal ROM - Respiratory Respiratory effort: normal Respiratory: bilateral: diminished - Cardiovascular Rhythm: regular Heart Sounds: Present: S1 & S2 - Extremities Extremities: no ischemia, pulses intact, pulses symmetrical Extremity abnormal: edema Peripheral Pulses: within normal limits - Abdominal General gastrointestinal: soft, non-distended, normal bowel sounds - Integumentary Integumentary: Present: warm, dry - Psychiatric Psychiatric: appropriate mood/affect, cooperative - Neurologic Neurologic: CNII-XII intact, moves all extremities, other (Generalized weakness) - Allied Health Allied health notes reviewed: nursing HEART Score - HEART Score Troponin: Troponin T < 0.010 ng/mL (0.00-0.029) 07/17/21 00:47 Results - Labs CBC & Chem 7: 07/18/21 07:30 07/18/21 07:30 Labs: Laboratory Last Values WBC 12.1 K/mm3 (4.5-11.0) H 07/18/21 07:30 RBC 5.34 M/mm3 (3.65-5.03) H 07/18/21 07:30 Hgb 15.2 gm/dl (11.8-15.2) 07/18/21 07:30 Hct 45.2 % (35.5-45.6) 07/18/21 07:30 MCV 85 fl (84-94) 07/18/21 07:30 MCH 28 pg (28-32) 07/18/21 07:30 MCHC 34 % (32-34) 07/18/21 07:30 RDW 13.2 % (13.2-15.2) 07/18/21 07:30 Plt Count 154 K/mm3 (140-440) 07/18/21 07:30 Lymph % (Auto) 14.1 % (13.4-35.0) 07/18/21 07:30 Pepin % (Auto) 7.2 % (0.0-7.3) 07/18/21 07:30 Eos % (Auto) 3.4 % (0.0-4.3) 07/18/21 07:30 Baso % (Auto) 0.5 % (0.0-1.8) 07/18/21 07:30 Lymph # (Auto) 1.7 K/mm3 (1.2-5.4) 07/18/21 07:30 Pepin # (Auto) 0.9 K/mm3 (0.0-0.8) H 07/18/21 07:30 Eos # (Auto) 0.4 K/mm3 (0.0-0.4) 07/18/21 07:30 Baso # (Auto) 0.1 K/mm3 (0.0-0.1) 07/18/21 07:30 Add Manual Diff Complete 07/17/21 00:47 Total Counted 100 07/17/21 00:47 Seg Neutrophils % 74.8 % (40.0-70.0) H 07/18/21 07:30 Seg Neuts % (Manual) 67.0 % (40.0-70.0) 07/17/21 00:47 Band Neutrophils % 0 % 07/17/21 00:47 Lymphocytes % (Manual) 23.0 % (13.4-35.0) 07/17/21 00:47 Reactive Lymphs % (Man) 0 % 07/17/21 00:47 Monocytes % (Manual) 1.0 % (0.0-7.3) 07/17/21 00:47 Eosinophils % (Manual) 1.0 % (0.0-4.3) 07/17/21 00:47 Basophils % (Manual) 0 % (0.0-1.8) 07/17/21 00:47 Metamyelocytes % 6.0 % 07/17/21 00:47 Myelocytes % 2.0 % 07/17/21 00:47 Promyelocytes % 0 % 07/17/21 00:47 Blast Cells % 0 % 07/17/21 00:47 Nucleated RBC % Not Reportable 07/17/21 00:47 Seg Neutrophils # 9.0 K/mm3 (1.8-7.7) H 07/18/21 07:30 Seg Neutrophils # Man 12.7 K/mm3 (1.8-7.7) H 07/17/21 00:47 Band Neutrophils # 0.0 K/mm3 07/17/21 00:47 Lymphocytes # (Manual) 4.4 K/mm3 (1.2-5.4) 07/17/21 00:47 Abs React Lymphs (Man) 0.0 K/mm3 07/17/21 00:47 Monocytes # (Manual) 0.2 K/mm3 (0.0-0.8) 07/17/21 00:47 Eosinophils # (Manual) 0.2 K/mm3 (0.0-0.4) 07/17/21 00:47 Basophils # (Manual) 0.0 K/mm3 (0.0-0.1) 07/17/21 00:47 Metamyelocytes # 1.1 K/mm3 07/17/21 00:47 Myelocytes # 0.4 K/mm3 07/17/21 00:47 Promyelocytes # 0.0 K/mm3 07/17/21 00:47 Blast Cells # 0.0 K/mm3 07/17/21 00:47 WBC Morphology Not Reportable 07/17/21 00:47 Hypersegmented Neuts Not Reportable 07/17/21 00:47 Hyposegmented Neuts Not Reportable 07/17/21 00:47 Hypogranular Neuts Not Reportable 07/17/21 00:47 Smudge Cells Not Reportable 07/17/21 00:47 Toxic Granulation 1+ 07/17/21 00:47 Toxic Vacuolation Not Reportable 07/17/21 00:47 Dohle Bodies Not Reportable 07/17/21 00:47 Pelger-Huet Anomaly Not Reportable 07/17/21 00:47 Ashish Rods Not Reportable 07/17/21 00:47 Platelet Estimate Consistent w auto 07/17/21 00:47 Clumped Platelets Not Reportable 07/17/21 00:47 Plt Clumps, EDTA Not Reportable 07/17/21 00:47 Large Platelets Not Reportable 07/17/21 00:47 Giant Platelets Not Reportable 07/17/21 00:47 Platelet Satelliting Not Reportable 07/17/21 00:47 Plt Morphology Comment Not Reportable 07/17/21 00:47 RBC Morphology Not Reportable 07/17/21 00:47 Dimorphic RBCs Not Reportable 07/17/21 00:47 Polychromasia Not Reportable 07/17/21 00:47 Hypochromasia Not Reportable 07/17/21 00:47 Poikilocytosis Not Reportable 07/17/21 00:47 Anisocytosis Not Reportable 07/17/21 00:47 Microcytosis Not Reportable 07/17/21 00:47 Macrocytosis Not Reportable 07/17/21 00:47 Spherocytes Not Reportable 07/17/21 00:47 Pappenheimer Bodies Not Reportable 07/17/21 00:47 Sickle Cells Not Reportable 07/17/21 00:47 Target Cells Not Reportable 07/17/21 00:47 Tear Drop Cells Not Reportable 07/17/21 00:47 Ovalocytes Not Reportable 07/17/21 00:47 Helmet Cells Not Reportable 07/17/21 00:47 Burr-Ruston Bodies Not Reportable 07/17/21 00:47 [place] Rings Not Reportable 07/17/21 00:47 Jamila Cells Not Reportable 07/17/21 00:47 Bite Cells Not Reportable 07/17/21 00:47 Crenated Cell Not Reportable 07/17/21 00:47 Elliptocytes Not Reportable 07/17/21 00:47 Acanthocytes (Spur) Not Reportable 07/17/21 00:47 Rouleaux Not Reportable 07/17/21 00:47 Hemoglobin C Crystals Not Reportable 07/17/21 00:47 Schistocytes Not Reportable 07/17/21 00:47 Malaria parasites Not Reportable 07/17/21 00:47 Kilo Bodies Not Reportable 07/17/21 00:47 Hem Pathologist Commnt No 07/17/21 00:47 PT 14.6 Sec. (12.2-14.9) 07/17/21 00:47 INR 1.03 (0.87-1.13) 07/17/21 00:47 APTT 27.8 Sec. (24.2-36.6) 07/17/21 00:47 Thrombin Time 19.7 Sec. (15.1-19.6) H 07/17/21 00:47 ABG pH 7.245 pH Units (7.350-7.450) L 07/17/21 02:00 ABG pCO2 45.0 mm Hg 07/17/21 02:00 ABG pO2 200.9 mm Hg (80.0-90.0) H 07/17/21 02:00 ABG HCO3 19.1 mmol/L (20.0-26.0) L 07/17/21 02:00 ABG O2 Saturation 99.2 % (95.0-99.0) H 07/17/21 02:00 ABG O2 Content 24.1 (0.0-44) 07/17/21 02:00 ABG Base Excess -8.1 mmol/L (-2.0-3.0) L 07/17/21 02:00 ABG Hemoglobin 17.4 gm/dl (14.0-18.0) 07/17/21 02:00 ABG Carboxyhemoglobin 1.3 % (0.0-5.0) 07/17/21 02:00 ABG Methemoglobin 0.6 % (0.0-1.5) 07/17/21 02:00 VBG pH 7.015 (7.320-7.420) L* 07/17/21 00:47 Oxyhemoglobin 97.2 % (95.0-99.0) 07/17/21 02:00 FiO2 100 % 07/17/21 02:00 Sodium 143 mmol/L (137-145) 07/18/21 07:30 Potassium 3.9 mmol/L (3.6-5.0) 07/18/21 07:30 Chloride 108.5 mmol/L (98-107) H 07/18/21 07:30 Carbon Dioxide 23 mmol/L (22-30) 07/18/21 07:30 Anion Gap 15 mmol/L 07/18/21 07:30 BUN 8 mg/dL (9-20) L 07/18/21 07:30 Creatinine 0.9 mg/dL (0.8-1.3) 07/18/21 07:30 Estimated GFR > 60 ml/min 07/18/21 07:30 BUN/Creatinine Ratio 9 % 07/18/21 07:30 Glucose 149 mg/dL (75-100) H 07/18/21 07:30 POC Glucose 149 mg/dL (70-105) H 07/18/21 08:03 Calcium 9.1 mg/dL (8.4-10.2) 07/18/21 07:30 Phosphorus 2.30 mg/dL (2.5-4.5) L 07/18/21 07:30 Magnesium 2.10 mg/dL (1.7-2.3) 07/18/21 07:30 Total Bilirubin 2.00 mg/dL (0.1-1.2) H 07/18/21 07:30 AST 234 units/L (5-40) H 07/18/21 07:30 ALT 149 units/L (7-56) H 07/18/21 07:30 Alkaline Phosphatase 79 units/L (35-129) 07/18/21 07:30 Total Creatine Kinase 146 units/L (55-170) 07/17/21 00:47 CK-MB (CK-2) 2.9 ng/mL (0.0-4.0) 07/17/21 00:47 CK-MB (CK-2) Rel Index 1.9 (0-4) 07/17/21 00:47 Troponin T < 0.010 ng/mL (0.00-0.029) 07/17/21 00:47 Total Protein 5.9 g/dL (6.3-8.2) L 07/18/21 07:30 Albumin 3.9 g/dL (3.9-5) 07/18/21 07:30 Albumin/Globulin Ratio 2.0 % 07/18/21 07:30 Urine Color Straw (Yellow) 07/17/21 Unknown Urine Turbidity Cloudy (Clear) 07/17/21 Unknown Urine pH 5.0 (5.0-7.0) 07/17/21 Unknown Ur Specific [place] 1.020 (1.003-1.030) 07/17/21 Unknown Urine Protein <15 mg/dl mg/dL (Negative) 07/17/21 Unknown Urine Glucose (UA) >=500 mg/dL (Negative) 07/17/21 Unknown Urine Ketones Neg mg/dL (Negative) 07/17/21 Unknown Urine Blood Mod (Negative) 07/17/21 Unknown Urine Nitrite Neg (Negative) 07/17/21 Unknown Urine Bilirubin Neg (Negative) 07/17/21 Unknown Urine Urobilinogen < 2.0 mg/dL (<2.0) 07/17/21 Unknown Ur Leukocyte Esterase Neg (Negative) 07/17/21 Unknown Urine WBC (Auto) < 1.0 /HPF (0.0-6.0) 07/17/21 Unknown Urine RBC (Auto) < 1.0 /HPF (0.0-6.0) 07/17/21 Unknown Salicylates < 0.3 mg/dL (2.8-20.0) L 07/17/21 00:47 Urine Opiates Screen Negative 07/17/21 Unknown Urine Methadone Screen Negative 07/17/21 Unknown Acetaminophen 5.0 ug/mL (10.0-30.0) L 07/17/21 00:47 Ur Barbiturates Screen Negative 07/17/21 Unknown Ur Phencyclidine Scrn Negative 07/17/21 Unknown Ur Amphetamines Screen Negative 07/17/21 Unknown U Benzodiazepines Scrn Positive 07/17/21 Unknown Urine Cocaine Screen Negative 07/17/21 Unknown U Marijuana (THC) Screen Negative 07/17/21 Unknown Drugs of Abuse Note Disclamer 07/17/21 Unknown Plasma/Serum Alcohol < 0.01 % (0-0.07) 07/17/21 00:47 Mcbride/IV: Voiding Method Toilet Active Medications - Current Medications Current Medications: Generic Name Dose Route Start Last Admin Trade Name Freq PRN Reason Stop Dose Admin Acetaminophen 650 mg 07/17/21 03:40 Acetaminophen 325 Mg Tab PO Q4H PRN Pain MILD(1-3)/Fever >100.5/STEVENSON Albuterol 2.5 mg 07/17/21 03:40 Albuterol 2.5 Mg/3 Ml Nebu IH Q3HRT PRN Shortness Of Breath Dextrose 0 ml 07/17/21 04:02 Dextrose 10% *Hypoglycemia IV PRN PRN Hypoglycemia Protocol Enoxaparin Sodium 40 mg 07/18/21 22:00 Enoxaparin 40 Mg/0.4 Ml Inj SUB-Q DAILY@2200 [facility] Protocol Famotidine 20 mg 07/17/21 10:00 07/18/21 09:01 Famotidine 20 Mg/2 Ml Inj IV 07/18/21 12:00 20 mg BID HERMAN Administration Famotidine 20 mg 07/18/21 22:00 Famotidine 20 Mg Tab PO BID HERMAN Hydromorphone HCl 0.5 mg 07/17/21 03:40 Hydromorphone 1 Mg/1 Ml Inj IV Q3H PRN Pain , Severe (7-10) Hydrophilic Ointment 1 applic 07/17/21 00:15 Lip Therapy Vaseline TP Q2HR PRN Dry Lips Insulin Human Isoph/Insulin Regular 22 unit 07/18/21 08:00 07/18/21 09:01 Insulin Nph/Regular 70/30 Inj SUB-Q 22 unit BIDDIAB HERMAN Administration Insulin Human Regular 0 units 07/18/21 11:30 Insulin Regular, Human 100 Units/1 Ml SUB-Q ACHS [facility] Protocol Levetiracetam 500 mg 07/18/21 22:00 Levetiracetam 500 Mg Tab PO BID HERMAN Morphine Sulfate 2 mg 07/17/21 03:40 Morphine 2 Mg/1 Ml Inj IV Q4H PRN Pain, Moderate (4-6) Multi-Ingred Cream/Lotion/Oil/Oint 1 applic 07/17/21 00:15 Mineral Oil/Petrolatum, White Ophth Oint 3.5 Gm OU Q4HR PRN Dry Eye(s) Ondansetron HCl 4 mg 07/17/21 03:40 Ondansetron 4 Mg/2 Ml Inj IV Q8H PRN Nausea And Vomiting Senna/Docusate Sodium 1 tab 07/17/21 10:00 07/18/21 09:05 Sennosides/Docusate Sodium 8.6/50 Mg Tab FEEDTUBE Not Given BID HERMAN Sodium Chloride 10 ml 07/17/21 10:00 07/18/21 09:33 Sodium Chloride 0.9% 10 Ml Flush Syringe IV 10 ml BID HERMAN Administration Sodium Chloride 10 ml 07/17/21 03:40 Sodium Chloride 0.9% 10 Ml Flush Syringe IV PRN PRN LINE FLUSH Sodium Chloride 10 ml 07/17/21 09:16 Sodium Chloride 0.9% 50 Ml Ivpb IV PRN PRN FLUSH Nutrition/Malnutrition Assess - Dietary Evaluation Nutrition/Malnutrition Findings: Nutrition Notes Start: 07/17/21 11: 39 Freq: Status: Active Protocol: Document 07/17/21 11:39 KURT (Rec: 07/17/21 11:48 KURT [id number]) Nutrition Notes Need for Assessment generated from: MD Order,Education Initial or Follow up Assessment Current Diagnosis Respiratory Failure Other Pertinent Diagnosis AMS, Seizures, DKA Current Diet NPO Labs/Tests POC Glu: 483, 360, 264, 249, 261, 200, 184 Pertinent Medications Insulin gtt, D5 1/2NS + 20mEq KCl at 125ml/hr, Propofol at 7 .756ml/hr (provides 205 kcal), 1/2NS at 150ml/hr Height 6 ft 1 in Weight 86.183 kg [place] Body Weight (kg) 83.63 BMI 25.0 Weight Status Appropriate Subjective/Other Information RD consulted for NTR recommendations and diet education. Pt on vent support at this time and not appropriate for diet education . No TF consult received yet. Burn Absent Trauma Absent Minimum of two criteria No #1 Nutrition Diagnosis Inadequate oral intake [facility], DKA (on insulin gtt) As Evidenced by Signs and Symptoms pt NPO Is patient on ventilator? Yes Is Patient Ambulatory and/or Out of Bed No REE-([facility]-confined to bed) [phone] Calculation Used for Recommendations [facility] Additional Notes Pro needs 1.2-2g/k-172g/ day Fluid needs 1ml/kcal Nutrition Intervention Change Diet Order: Advance diet to Consistent CHO when medically feasible Nutrition Support: Recommend Glucerna 1.2 at 75ml /hr if unable to advance PO diet Goal #1 Either advance diet or start EN support to meet nutrient needs Goal #2 Improved BG control Anticipated Discharge Needs: CHO-controlled diet Follow-Up By: 07/19/21 Additional Comments F/U: diet advancement vs TF consult, vent status, propofol <HUEY BOWERS - Last Filed: 07/18/21 18:26> Assessment and Plan Assessment and plan: I saw and evaluated the patient. I agree with the findings and the plan of care as documented in the Nurse Practitioner's~note, with the following corrections a nd additions. Hospitalist Physical - Constitutional Vitals: Temp Pulse Resp BP Pulse Ox 98.8 F 124 H 12 155/93 96 07/18/21 12:00 07/18/21 14:40 07/18/21 14:30 07/18/21 15:10 07/18/21 15:10 HEART Score - HEART Score Troponin: Troponin T < 0.010 ng/mL (0.00-0.029) 07/17/21 00:47 Results - Labs CBC & Chem 7: 07/18/21 07:30 07/18/21 07:30 Labs: Laboratory Last Values WBC 12.1 K/mm3 (4.5-11.0) H 07/18/21 07:30 RBC 5.34 M/mm3 (3.65-5.03) H 07/18/21 07:30 Hgb 15.2 gm/dl (11.8-15.2) 07/18/21 07:30 Hct 45.2 % (35.5-45.6) 07/18/21 07:30 MCV 85 fl (84-94) 07/18/21 07:30 MCH 28 pg (28-32) 07/18/21 07:30 MCHC 34 % (32-34) 07/18/21 07:30 RDW 13.2 % (13.2-15.2) 07/18/21 07:30 Plt Count 154 K/mm3 (140-440) 07/18/21 07:30 Lymph % (Auto) 14.1 % (13.4-35.0) 07/18/21 07:30 Pepin % (Auto) 7.2 % (0.0-7.3) 07/18/21 07:30 Eos % (Auto) 3.4 % (0.0-4.3) 07/18/21 07:30 Baso % (Auto) 0.5 % (0.0-1.8) 07/18/21 07:30 Lymph # (Auto) 1.7 K/mm3 (1.2-5.4) 07/18/21 07:30 Pepin # (Auto) 0.9 K/mm3 (0.0-0.8) H 07/18/21 07:30 Eos # (Auto) 0.4 K/mm3 (0.0-0.4) 07/18/21 07:30 Baso # (Auto) 0.1 K/mm3 (0.0-0.1) 07/18/21 07:30 Add Manual Diff Complete 07/17/21 00:47 Total Counted 100 07/17/21 00:47 Seg Neutrophils % 74.8 % (40.0-70.0) H 07/18/21 07:30 Seg Neuts % (Manual) 67.0 % (40.0-70.0) 07/17/21 00:47 Band Neutrophils % 0 % 07/17/21 00:47 Lymphocytes % (Manual) 23.0 % (13.4-35.0) 07/17/21 00:47 Reactive Lymphs % (Man) 0 % 07/17/21 00:47 Monocytes % (Manual) 1.0 % (0.0-7.3) 07/17/21 00:47 Eosinophils % (Manual) 1.0 % (0.0-4.3) 07/17/21 00:47 Basophils % (Manual) 0 % (0.0-1.8) 07/17/21 00:47 Metamyelocytes % 6.0 % 07/17/21 00:47 Myelocytes % 2.0 % 07/17/21 00:47 Promyelocytes % 0 % 07/17/21 00:47 Blast Cells % 0 % 07/17/21 00:47 Nucleated RBC % Not Reportable 07/17/21 00:47 Seg Neutrophils # 9.0 K/mm3 (1.8-7.7) H 07/18/21 07:30 Seg Neutrophils # Man 12.7 K/mm3 (1.8-7.7) H 07/17/21 00:47 Band Neutrophils # 0.0 K/mm3 07/17/21 00:47 Lymphocytes # (Manual) 4.4 K/mm3 (1.2-5.4) 07/17/21 00:47 Abs React Lymphs (Man) 0.0 K/mm3 07/17/21 00:47 Monocytes # (Manual) 0.2 K/mm3 (0.0-0.8) 07/17/21 00:47 Eosinophils # (Manual) 0.2 K/mm3 (0.0-0.4) 07/17/21 00:47 Basophils # (Manual) 0.0 K/mm3 (0.0-0.1) 07/17/21 00:47 Metamyelocytes # 1.1 K/mm3 07/17/21 00:47 Myelocytes # 0.4 K/mm3 07/17/21 00:47 Promyelocytes # 0.0 K/mm3 07/17/21 00:47 Blast Cells # 0.0 K/mm3 07/17/21 00:47 WBC Morphology Not Reportable 07/17/21 00:47 Hypersegmented Neuts Not Reportable 07/17/21 00:47 Hyposegmented Neuts Not Reportable 07/17/21 00:47 Hypogranular Neuts Not Reportable 07/17/21 00:47 Smudge Cells Not Reportable 07/17/21 00:47 Toxic Granulation 1+ 07/17/21 00:47 Toxic Vacuolation Not Reportable 07/17/21 00:47 Dohle Bodies Not Reportable 07/17/21 00:47 Pelger-Huet Anomaly Not Reportable 07/17/21 00:47 Ashish Rods Not Reportable 07/17/21 00:47 Platelet Estimate Consistent w auto 07/17/21 00:47 Clumped Platelets Not Reportable 07/17/21 00:47 Plt Clumps, EDTA Not Reportable 07/17/21 00:47 Large Platelets Not Reportable 07/17/21 00:47 Giant Platelets Not Reportable 07/17/21 00:47 Platelet Satelliting Not Reportable 07/17/21 00:47 Plt Morphology Comment Not Reportable 07/17/21 00:47 RBC Morphology Not Reportable 07/17/21 00:47 Dimorphic RBCs Not Reportable 07/17/21 00:47 Polychromasia Not Reportable 07/17/21 00:47 Hypochromasia Not Reportable 07/17/21 00:47 Poikilocytosis Not Reportable 07/17/21 00:47 Anisocytosis Not Reportable 07/17/21 00:47 Microcytosis Not Reportable 07/17/21 00:47 Macrocytosis Not Reportable 07/17/21 00:47 Spherocytes Not Reportable 07/17/21 00:47 Pappenheimer Bodies Not Reportable 07/17/21 00:47 Sickle Cells Not Reportable 07/17/21 00:47 Target Cells Not Reportable 07/17/21 00:47 Tear Drop Cells Not Reportable 07/17/21 00:47 Ovalocytes Not Reportable 07/17/21 00:47 Helmet Cells Not Reportable 07/17/21 00:47 Burr-Ruston Bodies Not Reportable 07/17/21 00:47 [place] Rings Not Reportable 07/17/21 00:47 [place] Cells Not Reportable 07/17/21 00:47 Bite Cells Not Reportable 07/17/21 00:47 Crenated Cell Not Reportable 07/17/21 00:47 Elliptocytes Not Reportable 07/17/21 00:47 Acanthocytes (Spur) Not Reportable 07/17/21 00:47 Rouleaux Not Reportable 07/17/21 00:47 Hemoglobin C Crystals Not Reportable 07/17/21 00:47 Schistocytes Not Reportable 07/17/21 00:47 Malaria parasites Not Reportable 07/17/21 00:47 Kilo Bodies Not Reportable 07/17/21 00:47 Hem Pathologist Commnt No 07/17/21 00:47 PT 14.6 Sec. (12.2-14.9) 07/17/21 00:47 INR 1.03 (0.87-1.13) 07/17/21 00:47 APTT 27.8 Sec. (24.2-36.6) 07/17/21 00:47 Thrombin Time 19.7 Sec. (15.1-19.6) H 07/17/21 00:47 ABG pH 7.245 pH Units (7.350-7.450) L 07/17/21 02:00 ABG pCO2 45.0 mm Hg 07/17/21 02:00 ABG pO2 200.9 mm Hg (80.0-90.0) H 07/17/21 02:00 ABG HCO3 19.1 mmol/L (20.0-26.0) L 07/17/21 02:00 ABG O2 Saturation 99.2 % (95.0-99.0) H 07/17/21 02:00 ABG O2 Content 24.1 (0.0-44) 07/17/21 02:00 ABG Base Excess -8.1 mmol/L (-2.0-3.0) L 07/17/21 02:00 ABG Hemoglobin 17.4 gm/dl (14.0-18.0) 07/17/21 02:00 ABG Carboxyhemoglobin 1.3 % (0.0-5.0) 07/17/21 02:00 ABG Methemoglobin 0.6 % (0.0-1.5) 07/17/21 02:00 VBG pH 7.015 (7.320-7.420) L* 07/17/21 00:47 Oxyhemoglobin 97.2 % (95.0-99.0) 07/17/21 02:00 FiO2 100 % 07/17/21 02:00 Sodium 143 mmol/L (137-145) 07/18/21 07:30 Potassium 3.9 mmol/L (3.6-5.0) 07/18/21 07:30 Chloride 108.5 mmol/L (98-107) H 07/18/21 07:30 Carbon Dioxide 23 mmol/L (22-30) 07/18/21 07:30 Anion Gap 15 mmol/L 07/18/21 07:30 BUN 8 mg/dL (9-20) L 07/18/21 07:30 Creatinine 0.9 mg/dL (0.8-1.3) 07/18/21 07:30 Estimated GFR > 60 ml/min 07/18/21 07:30 BUN/Creatinine Ratio 9 % 07/18/21 07:30 Glucose 149 mg/dL (75-100) H 07/18/21 07:30 POC Glucose 177 mg/dL (70-105) H 07/18/21 11:38 Calcium 9.1 mg/dL (8.4-10.2) 07/18/21 07:30 Phosphorus 2.30 mg/dL (2.5-4.5) L 07/18/21 07:30 Magnesium 2.10 mg/dL (1.7-2.3) 07/18/21 07:30 Total Bilirubin 2.00 mg/dL (0.1-1.2) H 07/18/21 07:30 AST 234 units/L (5-40) H 07/18/21 07:30 ALT 149 units/L (7-56) H 07/18/21 07:30 Alkaline Phosphatase 79 units/L (35-129) 07/18/21 07:30 Total Creatine Kinase 146 units/L (55-170) 07/17/21 00:47 CK-MB (CK-2) 2.9 ng/mL (0.0-4.0) 07/17/21 00:47 CK-MB (CK-2) Rel Index 1.9 (0-4) 07/17/21 00:47 Troponin T < 0.010 ng/mL (0.00-0.029) 07/17/21 00:47 Total Protein 5.9 g/dL (6.3-8.2) L 07/18/21 07:30 Albumin 3.9 g/dL (3.9-5) 07/18/21 07:30 Albumin/Globulin Ratio 2.0 % 07/18/21 07:30 Urine Color Straw (Yellow) 07/17/21 Unknown Urine Turbidity Cloudy (Clear) 07/17/21 Unknown Urine pH 5.0 (5.0-7.0) 07/17/21 Unknown Ur Specific [place] 1.020 (1.003-1.030) 07/17/21 Unknown Urine Protein <15 mg/dl mg/dL (Negative) 07/17/21 Unknown Urine Glucose (UA) >=500 mg/dL (Negative) 07/17/21 Unknown Urine Ketones Neg mg/dL (Negative) 07/17/21 Unknown Urine Blood Mod (Negative) 07/17/21 Unknown Urine Nitrite Neg (Negative) 07/17/21 Unknown Urine Bilirubin Neg (Negative) 07/17/21 Unknown Urine Urobilinogen < 2.0 mg/dL (<2.0) 07/17/21 Unknown Ur Leukocyte Esterase Neg (Negative) 07/17/21 Unknown Urine WBC (Auto) < 1.0 /HPF (0.0-6.0) 07/17/21 Unknown Urine RBC (Auto) < 1.0 /HPF (0.0-6.0) 07/17/21 Unknown Salicylates < 0.3 mg/dL (2.8-20.0) L 07/17/21 00:47 Urine Opiates Screen Negative 07/17/21 Unknown Urine Methadone Screen Negative 07/17/21 Unknown Acetaminophen 5.0 ug/mL (10.0-30.0) L 07/17/21 00:47 Ur Barbiturates Screen Negative 07/17/21 Unknown Ur Phencyclidine Scrn Negative 07/17/21 Unknown Ur Amphetamines Screen Negative 07/17/21 Unknown U Benzodiazepines Scrn Positive 07/17/21 Unknown Urine Cocaine Screen Negative 07/17/21 Unknown U Marijuana (THC) Screen Negative 07/17/21 Unknown Drugs of Abuse Note Disclamer 07/17/21 Unknown Plasma/Serum Alcohol < 0.01 % (0-0.07) 07/17/21 00:47 Coronavirus (PCR) Negative (Negative) 07/17/21 09:00 Microbiology: Microbiology 07/17/21 Unknown Tracheal Aspirate Sputum Culture - Final Mcbride/IV: Voiding Method Toilet Active Medications - Current Medications Current Medications: Generic Name Dose Route Start Last Admin Trade Name Freq PRN Reason Stop Dose Admin Acetaminophen 650 mg 07/17/21 03:40 Acetaminophen 325 Mg Tab PO Q4H PRN Pain MILD(1-3)/Fever >100.5/STEVENSON Albuterol 2.5 mg 07/17/21 03:40 Albuterol 2.5 Mg/3 Ml Nebu IH Q3HRT PRN Shortness Of Breath Dextrose 0 ml 07/17/21 04:02 Dextrose 10% *Hypoglycemia IV PRN PRN Hypoglycemia Protocol Enoxaparin Sodium 40 mg 07/18/21 22:00 Enoxaparin 40 Mg/0.4 Ml Inj SUB-Q DAILY@2200 [facility] Protocol Famotidine 20 mg 07/18/21 22:00 Famotidine 20 Mg Tab PO BID HERMAN Insulin Human Isoph/Insulin Regular 22 unit 07/18/21 08:00 07/18/21 09:01 Insulin Nph/Regular 70/30 Inj SUB-Q 22 unit BIDDIAB [facility] Administration Insulin Human Regular 0 units 07/18/21 11:30 07/18/21 12:17 Insulin Regular, Human 100 Units/1 Ml SUB-Q 3 units ACHS [facility] Administration Protocol Levetiracetam 500 mg 07/18/21 22:00 Levetiracetam 500 Mg Tab PO BID [facility] Morphine Sulfate 2 mg 07/17/21 03:40 Morphine 2 Mg/1 Ml Inj IV Q4H PRN Pain, Moderate (4-6) Ondansetron HCl 4 mg 07/17/21 03:40 Ondansetron 4 Mg/2 Ml Inj IV Q8H PRN Nausea And Vomiting Senna/Docusate Sodium 1 tab 07/17/21 10:00 07/18/21 09:05 Sennosides/Docusate Sodium 8.6/50 Mg Tab FEEDTUBE Not Given BID [facility]MAN Sodium Chloride 10 ml 07/17/21 10:00 07/18/21 09:33 Sodium Chloride 0.9% 10 Ml Flush Syringe IV 10 ml BID HERMAN Administration Sodium Chloride 10 ml 07/17/21 03:40 Sodium Chloride 0.9% 10 Ml Flush Syringe IV PRN PRN LINE FLUSH Sodium Chloride 10 ml 07/17/21 09:16 Sodium Chloride 0.9% 50 Ml Ivpb IV PRN PRN FLUSH Nutrition/Malnutrition Assess - Dietary Evaluation Nutrition/Malnutrition Findings: Nutrition Notes Start: 07/17/21 11:39 Freq: Status: Active Protocol: Document 07/17/21 11:39 KURT (Rec: 07/17/21 11:48 KURT [id number]) Nutrition Notes Need for Assessment generated from: MD Order,Education Initial or Follow up Assessment Current Diagnosis Respiratory Failure Other Pertinent Diagnosis AMS, Seizures, DKA Current Diet NPO Labs/Tests POC Glu: 483, 360, 264, 249, 261, 200, 184 Pertinent Medications Insulin gtt, D5 1/2NS + 20mEq KCl at 125ml/hr, Propofol at 7 .756ml/hr (provides 205 kcal), 1/2NS at 150ml/hr Height 6 ft 1 in Weight 86.183 kg [place] Body Weight (kg) 83.63 BMI 25.0 Weight Status Appropriate Subjective/Other Information RD consulted for NTR recommendations and diet education. Pt on vent support at this time and not appropriate for diet education . No TF consult received yet. Burn Absent Trauma Absent Minimum of two criteria No #1 Nutrition Diagnosis Inadequate oral intake Etiology [facility] ventilation, DKA (on insulin gtt) As Evidenced by Signs and Symptoms pt NPO Is patient on ventilator? Yes Is Patient Ambulatory and/or Out of Bed No REE-([facility]-confined to bed) [phone] Calculation Used for Recommendations [facility] Additional Notes Pro needs 1.2-2g/k-172g/ day Fluid needs 1ml/kcal Nutrition Intervention Change Diet Order: Advance diet to Consistent CHO when medically feasible Nutrition Support: Recommend Glucerna 1.2 at 75ml /hr if unable to advance PO diet Goal #1 Either advance diet or start EN support to meet nutrient needs Goal #2 Improved BG control Anticipated Discharge Needs: CHO-controlled diet Follow-Up By: 07/19/21 Additional Comments F/U: diet advancement vs TF consult, vent status, propofol
--- NOTE | 2021-07-18 11:29 | Progress Note ---
Assessment and Plan Assessment and Plan 50-year-old male with history of seizures and hyperglycemia was brought to the emergency room because of SVT, seizure, and hyperglycemia. patient reportedly had a seizure or convulsion at home, without trauma. EMS reports that they picked up the patient and he was not seizing, but he was somewhat altered and combative, moving 4 extremities, and hyperglycemic in the field. - Patient Problems # Acute respiratory failure - Intubated and sedated -Move all limbs to stimuli, slightly follow command -currently on Propofol and versed # DKA (diabetic ketoacidosis) -Initial Glucose#545 -Hco3 is #10 -strarted on IV fluid and Insulin IV # SVT (supraventricular tachycardia) -Cardiology for evaluation. - Echocardiogram. - Patient is status post cardioversion -UDS is negative # Seizure -Hx of seizure -Not taking medications, had seizure related to hyperglycemia last 2006 - According to pt. he had multiple MRI brain before all are normal , and is not interested in having another one -EEG today is unremarkable _maintain Keppra 500 mg PO Bid -Seizure precaution no driving -neurology follow up on d/c. # DVT prophylaxis -SCD for DVT prophylaxis. - Pepcid 20 mg IV every 12 hours for GI prophylaxis. - Patient is a full code will follow as needed Subjective Date of service: 07/18/21 Principal diagnosis: seizure,DKA Interval history: pt. is doing well extubated no seizure today off insulin IV EEG is unremarkable according to pt. he had seizure at least 1-2 times in his life related to hyperglycemia ,last 2006 he had multiple mRI last 2018 he is not taking seizure medications and drives Objective - Vital Sign Vital Signs - 12hr 07/17/21 07/17/21 07/17/21 23:30 23:40 23:50 Temperature Pulse Rate 111 H 110 H 130 H Pulse Rate [ From Monitor] Respiratory 16 16 25 H Rate Blood Pressure 113/69 113/69 113/69 O2 Sat by Pulse 96 96 96 Oximetry 07/18/21 07/18/21 07/18/21 00:00 00:10 00:20 Temperature 99.4 F Pulse Rate 114 H 110 H 111 H Pulse Rate [ 115 H From Monitor] Respiratory 13 32 H 15 Rate Blood Pressure 122/69 122/69 122/69 O2 Sat by Pulse 97 95 96 Oximetry 07/18/21 07/18/21 07/18/21 00:30 00:40 00:50 Temperature Pulse Rate 113 H 110 H 109 H Pulse Rate [ From Monitor] Respiratory 16 14 13 Rate Blood Pressure 122/69 122/69 122/69 O2 Sat by Pulse 97 95 96 Oximetry 07/18/21 07/18/21 07/18/21 01:00 01:10 01:20 Temperature Pulse Rate 107 H 108 H 112 H Pulse Rate [ From Monitor] Respiratory 20 21 19 Rate Blood Pressure 129/69 129/69 129/69 O2 Sat by Pulse 96 97 96 Oximetry 07/18/21 07/18/21 07/18/21 01:30 01:40 01:50 Temperature Pulse Rate 121 H 104 H 102 H Pulse Rate [ From Monitor] Respiratory 20 20 22 Rate Blood Pressure 129/69 129/69 129/69 O2 Sat by Pulse 95 94 95 Oximetry 07/18/21 07/18/21 07/18/21 02:00 02:10 02:20 Temperature Pulse Rate 105 H 112 H 117 H Pulse Rate [ From Monitor] Respiratory 24 18 16 Rate Blood Pressure 126/77 126/77 126/77 O2 Sat by Pulse 98 96 96 Oximetry 07/18/21 07/18/21 07/18/21 02:30 02:40 02:50 Temperature Pulse Rate 110 H 141 H 98 H Pulse Rate [ From Monitor] Respiratory 13 27 H 13 Rate Blood Pressure 126/77 126/77 126/77 O2 Sat by Pulse 95 96 95 Oximetry 07/18/21 07/18/21 07/18/21 03:00 03:10 03:20 Temperature Pulse Rate 104 H 101 H 105 H Pulse Rate [ From Monitor] Respiratory 19 21 21 Rate Blood Pressure 112/78 112/78 112/78 O2 Sat by Pulse 95 95 95 Oximetry 07/18/21 07/18/21 07/18/21 03:30 03:40 03:50 Temperature Pulse Rate 108 H 102 H 109 H Pulse Rate [ From Monitor] Respiratory 21 17 17 Rate Blood Pressure 112/78 112/78 112/78 O2 Sat by Pulse 94 96 95 Oximetry 07/18/21 07/18/21 07/18/21 04:00 04:10 04:20 Temperature 98.9 F Pulse Rate 104 H 101 H 99 H Pulse Rate [ 115 H From Monitor] Respiratory 22 13 26 H Rate Blood Pressure 134/82 134/82 134/82 O2 Sat by Pulse 98 96 96 Oximetry 07/18/21 07/18/21 07/18/21 04:30 04:40 04:50 Temperature Pulse Rate 100 H 103 H 103 H Pulse Rate [ From Monitor] Respiratory 16 16 15 Rate Blood Pressure 134/82 134/82 134/82 O2 Sat by Pulse 96 96 97 Oximetry 07/18/21 07/18/21 07/18/21 05:00 05:10 05:20 Temperature Pulse Rate 107 H 106 H 100 H Pulse Rate [ From Monitor] Respiratory 18 18 12 Rate Blood Pressure 120/78 120/78 120/78 O2 Sat by Pulse 93 97 96 Oximetry 07/18/21 07/18/21 07/18/21 05:30 05:40 05:50 Temperature Pulse Rate 104 H 99 H 106 H Pulse Rate [ From Monitor] Respiratory 20 15 19 Rate Blood Pressure 120/78 120/78 120/78 O2 Sat by Pulse 97 96 97 Oximetry 07/18/21 07/18/21 07/18/21 06:00 06:10 06:20 Temperature Pulse Rate 97 H 102 H 101 H Pulse Rate [ From Monitor] Respiratory 17 13 16 Rate Blood Pressure 143/91 143/91 143/91 O2 Sat by Pulse 97 97 96 Oximetry 07/18/21 07/18/21 07/18/21 06:30 06:40 06:50 Temperature Pulse Rate 100 H 101 H 101 H Pulse Rate [ From Monitor] Respiratory 21 20 17 Rate Blood Pressure 143/91 143/91 143/91 O2 Sat by Pulse 95 95 95 Oximetry 07/18/21 07/18/21 07/18/21 07:09 07:10 07:20 Temperature Pulse Rate 105 H 104 H 105 H Pulse Rate [ From Monitor] Respiratory 15 14 Rate Blood Pressure 143/91 141/99 141/99 O2 Sat by Pulse 97 97 96 Oximetry 07/18/21 07/18/21 07/18/21 07:30 07:40 07:50 Temperature Pulse Rate 108 H 99 H 99 H Pulse Rate [ From Monitor] Respiratory 31 H 26 H 19 Rate Blood Pressure 141/99 141/99 141/99 O2 Sat by Pulse 96 97 98 Oximetry 07/18/21 07/18/21 07/18/21 08:00 08:10 08:13 Temperature 98 F Pulse Rate 95 H 107 H Pulse Rate [ 115 H From Monitor] Respiratory 20 Rate Blood Pressure 143/89 143/89 O2 Sat by Pulse 96 96 97 Oximetry 07/18/21 07/18/21 07/18/21 08:20 08:30 08:40 Temperature Pulse Rate 114 H 100 H 104 H Pulse Rate [ From Monitor] Respiratory Rate Blood Pressure 143/89 143/89 143/89 O2 Sat by Pulse 98 96 97 Oximetry 07/18/21 07/18/21 07/18/21 08:50 09:00 09:10 Temperature Pulse Rate 101 H 103 H 99 H Pulse Rate [ From Monitor] Respiratory 23 25 H Rate Blood Pressure 143/89 162/93 138/83 O2 Sat by Pulse 94 98 98 Oximetry 07/18/21 07/18/21 07/18/21 09:20 09:30 09:40 Temperature Pulse Rate 96 H 114 H 102 H Pulse Rate [ From Monitor] Respiratory 21 19 20 Rate Blood Pressure 138/83 138/83 138/83 O2 Sat by Pulse 96 97 Oximetry 07/18/21 07/18/21 07/18/21 09:50 10:00 10:10 Temperature Pulse Rate 99 H 98 H 102 H Pulse Rate [ From Monitor] Respiratory 17 14 16 Rate Blood Pressure 138/83 135/80 135/80 O2 Sat by Pulse Oximetry 07/18/21 07/18/21 07/18/21 10:20 10:30 10:40 Temperature Pulse Rate 103 H 99 H 99 H Pulse Rate [ From Monitor] Respiratory 21 21 14 Rate Blood Pressure 135/80 135/80 135/80 O2 Sat by Pulse Oximetry 07/18/21 07/18/21 10:50 11:00 Temperature Pulse Rate 99 H 97 H Pulse Rate [ From Monitor] Respiratory 13 15 Rate Blood Pressure 135/80 145/86 O2 Sat by Pulse Oximetry - General Apperance Constitutional: comfortable - EENT EENT: PERRL, mucous membranes moist - Respiratory Respiratory: lungs clear, rhonchi - Cardiovascular Cardiovascular: regular rate, normal S1, normal S2 Extremities: no peripheral edema bilat, no clubbing, cyanosis - Gastrointestinal Gastrointestinal: normoactive bowel sounds - Integumentary Integumentary: normal - Neurologic Cranial nerve examination: intact Speech examination: intact Detailed motor examination: grossly full strength in - Laboratory Findings CBC and BMP: 07/18/21 07:30 07/18/21 07:30 Abnormal Lab Findings: Abnormal Labs 07/17/21 07/17/21 07/17/21 00:47 00:47 00:47 WBC 19.0 H RBC 5.74 H Hgb 16.1 H Hct 51.0 H RDW 12.3 L [place] # (Auto) Seg Neutrophils % Seg Neutrophils # Seg Neutrophils # Man 12.7 H Thrombin Time 19.7 H ABG pH ABG pO2 ABG HCO3 ABG O2 Saturation ABG Base Excess VBG pH Sodium 135 L Chloride 92.9 L Carbon Dioxide 10 L BUN Creatinine 1.4 H Glucose 532 H* POC Glucose Phosphorus Magnesium 2.60 H Total Bilirubin AST ALT Alkaline Phosphatase 143 H Total Protein Salicylates Acetaminophen 07/17/21 07/17/21 07/17/21 00:47 00:47 00:47 WBC RBC Hgb Hct RDW [place] # (Auto) Seg Neutrophils % Seg Neutrophils # Seg Neutrophils # Man Thrombin Time ABG pH ABG pO2 ABG HCO3 ABG O2 Saturation ABG Base Excess VBG pH 7.015 L* Sodium Chloride Carbon Dioxide BUN Creatinine Glucose POC Glucose Phosphorus Magnesium Total Bilirubin AST ALT Alkaline Phosphatase Total Protein Salicylates < 0.3 L Acetaminophen 5.0 L 07/17/21 07/17/21 07/17/21 01:45 02:00 03:44 WBC RBC Hgb Hct RDW [place] # (Auto) Seg Neutrophils % Seg Neutrophils # Seg Neutrophils # Man Thrombin Time ABG pH 7.245 L ABG pO2 200.9 H ABG HCO3 19.1 L ABG O2 Saturation 99.2 H ABG Base Excess -8.1 L VBG pH Sodium 132 L 132 L Chloride 94.5 L Carbon Dioxide 15 L 18 L BUN Creatinine 1.5 H 1.4 H Glucose 540 H* 545 H* POC Glucose Phosphorus Magnesium Total Bilirubin AST ALT Alkaline Phosphatase Total Protein Salicylates Acetaminophen 07/17/21 07/17/21 07/17/21 03:47 03:58 05:42 WBC RBC Hgb Hct RDW [place] # (Auto) Seg Neutrophils % Seg Neutrophils # Seg Neutrophils # Man Thrombin Time ABG pH ABG pO2 ABG HCO3 ABG O2 Saturation ABG Base Excess VBG pH Sodium Chloride Carbon Dioxide 20 L BUN Creatinine Glucose 342 H POC Glucose 483 H Phosphorus 2.10 L Magnesium 2.50 H Total Bilirubin AST ALT Alkaline Phosphatase Total Protein Salicylates Acetaminophen 07/17/21 07/17/2122 06:36 07:24 08:26 WBC RBC Hgb Hct RDW [place] # (Auto) Seg Neutrophils % Seg Neutrophils # Seg Neutrophils # Man Thrombin Time ABG pH ABG pO2 ABG HCO3 ABG O2 Saturation ABG Base Excess VBG pH Sodium Chloride Carbon Dioxide BUN Creatinine Glucose POC Glucose 360 H 264 H 249 H Phosphorus Magnesium Total Bilirubin AST ALT Alkaline Phosphatase Total Protein Salicylates Acetaminophen 07/17/21 07/17/21 07/17/21 09:27 10:29 11:32 WBC RBC Hgb Hct RDW [place] # (Auto) Seg Neutrophils % Seg Neutrophils # Seg Neutrophils # Man Thrombin Time ABG pH ABG pO2 ABG HCO3 ABG O2 Saturation ABG Base Excess VBG pH Sodium Chloride Carbon Dioxide BUN Creatinine Glucose POC Glucose 261 H 200 H 184 H Phosphorus Magnesium Total Bilirubin AST ALT Alkaline Phosphatase Total Protein Salicylates Acetaminophen 07/17/21 07/17/21 07/17/21 11:54 12:26 13:45 WBC RBC Hgb Hct RDW [place] # (Auto) Seg Neutrophils % Seg Neutrophils # Seg Neutrophils # Man Thrombin Time ABG pH ABG pO2 ABG HCO3 ABG O2 Saturation ABG Base Excess VBG pH Sodium Chloride Carbon Dioxide 20 L BUN Creatinine Glucose 192 H POC Glucose 188 H 211 H Phosphorus Magnesium 2.50 H Total Bilirubin AST ALT Alkaline Phosphatase Total Protein Salicylates Acetaminophen 07/17/21 07/17/21 07/17/21 14:19 15:33 16:34 WBC RBC Hgb Hct RDW [place] # (Auto) Seg Neutrophils % Seg Neutrophils # Seg Neutrophils # Man Thrombin Time ABG pH ABG pO2 ABG HCO3 ABG O2 Saturation ABG Base Excess VBG pH Sodium Chloride Carbon Dioxide BUN Creatinine Glucose POC Glucose 223 H 199 H 211 H Phosphorus Magnesium Total Bilirubin AST ALT Alkaline Phosphatase Total Protein Salicylates Acetaminophen 07/17/21 07/17/21 07/17/21 17:33 18:20 18:44 WBC RBC Hgb Hct RDW [place] # (Auto) Seg Neutrophils % Seg Neutrophils # Seg Neutrophils # Man Thrombin Time ABG pH ABG pO2 ABG HCO3 ABG O2 Saturation ABG Base Excess VBG pH Sodium Chloride 107.3 H Carbon Dioxide 20 L BUN Creatinine Glucose 202 H POC Glucose 182 H 207 H Phosphorus Magnesium Total Bilirubin AST ALT Alkaline Phosphatase Total Protein Salicylates Acetaminophen 07/17/21 07/17/21 07/17/21 19:45 20:53 22:18 WBC RBC Hgb Hct RDW [place] # (Auto) Seg Neutrophils % Seg Neutrophils # Seg Neutrophils # Man Thrombin Time ABG pH ABG pO2 ABG HCO3 ABG O2 Saturation ABG Base Excess VBG pH Sodium Chloride Carbon Dioxide BUN Creatinine Glucose POC Glucose 217 H 205 H 215 H Phosphorus Magnesium Total Bilirubin AST ALT Alkaline Phosphatase Total Protein Salicylates Acetaminophen 07/17/21 07/17/21 07/18/21 22:57 23:57 01:00 WBC RBC Hgb Hct RDW [place] # (Auto) Seg Neutrophils % Seg Neutrophils # Seg Neutrophils # Man Thrombin Time ABG pH ABG pO2 ABG HCO3 ABG O2 Saturation ABG Base Excess VBG pH Sodium Chloride 111.9 H Carbon Dioxide 19 L BUN Creatinine Glucose 154 H POC Glucose 207 H 174 H Phosphorus Magnesium Total Bilirubin AST ALT Alkaline Phosphatase Total Protein Salicylates Acetaminophen 07/18/21 07/18/21 07/18/21 01:18 01:59 03:01 WBC RBC Hgb Hct RDW [place] # (Auto) Seg Neutrophils % Seg Neutrophils # Seg Neutrophils # Man Thrombin Time ABG pH ABG pO2 ABG HCO3 ABG O2 Saturation ABG Base Excess VBG pH Sodium Chloride Carbon Dioxide BUN Creatinine Glucose POC Glucose 130 H 152 H 168 H Phosphorus Magnesium Total Bilirubin AST ALT Alkaline Phosphatase Total Protein Salicylates Acetaminophen 07/18/21 07/18/21 07/18/21 03:57 05:09 05:49 WBC RBC Hgb Hct RDW [place] # (Auto) Seg Neutrophils % Seg Neutrophils # Seg Neutrophils # Man Thrombin Time ABG pH ABG pO2 ABG HCO3 ABG O2 Saturation ABG Base Excess VBG pH Sodium Chloride Carbon Dioxide BUN Creatinine Glucose POC Glucose 157 H 151 H 166 H Phosphorus Magnesium Total Bilirubin AST ALT Alkaline Phosphatase Total Protein Salicylates Acetaminophen 07/18/21 07/18/21 07/18/21 07:13 07:30 07:30 WBC 12.1 H RBC 5.34 H Hgb Hct RDW [place] # (Auto) 0.9 H Seg Neutrophils % 74.8 H Seg Neutrophils # 9.0 H Seg Neutrophils # Man Thrombin Time ABG pH ABG pO2 ABG HCO3 ABG O2 Saturation ABG Base Excess VBG pH Sodium Chloride 108.5 H Carbon Dioxide BUN 8 L Creatinine Glucose 149 H POC Glucose 137 H Phosphorus 2.30 L Magnesium Total Bilirubin 2.00 H AST 234 H ALT 149 H Alkaline Phosphatase Total Protein 5.9 L Salicylates Acetaminophen 07/18/21 08:03 WBC RBC Hgb Hct RDW [place] # (Auto) Seg Neutrophils % Seg Neutrophils # Seg Neutrophils # Man Thrombin Time ABG pH ABG pO2 ABG HCO3 ABG O2 Saturation ABG Base Excess VBG pH Sodium Chloride Carbon Dioxide BUN Creatinine Glucose POC Glucose 149 H Phosphorus Magnesium Total Bilirubin AST ALT Alkaline Phosphatase Total Protein Salicylates Acetaminophen
--- NOTE | 2021-07-18 11:37 | Progress Note ---
Assessment and Plan 50 y/o male admitted with hyperglycemia, SVT s/po cardioversion, admitted post cardioversion as patient was not protecting his airway. 07/18/21: transfer to floor (COVID is still pending even though sent yesterday). Will send to COVID floor until labs return. Follow up neurology recs. Diabetic education. Dietary changes. Will sign off, once out of unit. 1. ABG stat this am 2. IF abg is adequate, turn off sedation and extubate 3. If extubated, assess swallowing and feed 4. Needs long acting insulin, check A1c 5. Follow Neuro Recs 6. Guarded Prognosis. CCT 31 minutes. Subjective Date of service: 07/18/21 Principal diagnosis: seizure,DKA Interval history: No acute events. Successful extubation on yesterday. Overnight slightly difficult and confused. Threatened to leave AMA several times. Not cooperative with nursing. This am better. Off insulin drip. Tolerating PO and currently on room air with good sats. Objective Vital Signs - 12hr 07/17/21 07/17/21 07/18/21 23:40 23:50 00:00 Temperature 99.4 F Pulse Rate 110 H 130 H 114 H Pulse Rate [ 115 H From Monitor] Respiratory 16 25 H 13 Rate Blood Pressure 113/69 113/69 122/69 O2 Sat by Pulse 96 96 97 Oximetry 07/18/21 07/18/21 07/18/21 00:10 00:20 00:30 Temperature Pulse Rate 110 H 111 H 113 H Pulse Rate [ From Monitor] Respiratory 32 H 15 16 Rate Blood Pressure 122/69 122/69 122/69 O2 Sat by Pulse 95 96 97 Oximetry 07/18/21 07/18/21 07/18/21 00:40 00:50 01:00 Temperature Pulse Rate 110 H 109 H 107 H Pulse Rate [ From Monitor] Respiratory 14 13 20 Rate Blood Pressure 122/69 122/69 129/69 O2 Sat by Pulse 95 96 96 Oximetry 07/18/21 07/18/21 07/18/21 01:10 01:20 01:30 Temperature Pulse Rate 108 H 112 H 121 H Pulse Rate [ From Monitor] Respiratory 21 19 20 Rate Blood Pressure 129/69 129/69 129/69 O2 Sat by Pulse 97 96 95 Oximetry 02/01/22 02/01/22 02/01/22 01:40 01:50 02:00 Temperature Pulse Rate 104 H 102 H 105 H Pulse Rate [ From Monitor] Respiratory 20 22 24 Rate Blood Pressure 129/69 129/69 126/77 O2 Sat by Pulse 94 95 98 Oximetry 07/18/21 07/18/21 07/18/21 02:10 02:20 02:30 Temperature Pulse Rate 112 H 117 H 110 H Pulse Rate [ From Monitor] Respiratory 18 16 13 Rate Blood Pressure 126/77 126/77 126/77 O2 Sat by Pulse 96 96 95 Oximetry 07/18/21 07/18/21 07/18/21 02:40 02:50 03:00 Temperature Pulse Rate 141 H 98 H 104 H Pulse Rate [ From Monitor] Respiratory 27 H 13 19 Rate Blood Pressure 126/77 126/77 112/78 O2 Sat by Pulse 96 95 95 Oximetry 07/18/21 07/18/21 07/18/21 03:10 03:20 03:30 Temperature Pulse Rate 101 H 105 H 108 H Pulse Rate [ From Monitor] Respiratory 21 21 21 Rate Blood Pressure 112/78 112/78 112/78 O2 Sat by Pulse 95 95 94 Oximetry 07/18/21 07/18/21 07/18/21 03:40 03:50 04:00 Temperature 98.9 F Pulse Rate 102 H 109 H 104 H Pulse Rate [ 115 H From Monitor] Respiratory 17 17 22 Rate Blood Pressure 112/78 112/78 134/82 O2 Sat by Pulse 96 95 98 Oximetry 07/18/21 07/18/21 07/18/21 04:10 04:20 04:30 Temperature Pulse Rate 101 H 99 H 100 H Pulse Rate [ From Monitor] Respiratory 13 26 H 16 Rate Blood Pressure 134/82 134/82 134/82 O2 Sat by Pulse 96 96 96 Oximetry 07/18/21 07/18/21 07/18/21 04:40 04:50 05:00 Temperature Pulse Rate 103 H 103 H 107 H Pulse Rate [ From Monitor] Respiratory 16 15 18 Rate Blood Pressure 134/82 134/82 120/78 O2 Sat by Pulse 96 97 93 Oximetry 07/18/21 07/18/21 07/18/21 05:10 05:20 05:30 Temperature Pulse Rate 106 H 100 H 104 H Pulse Rate [ From Monitor] Respiratory 18 12 20 Rate Blood Pressure 120/78 120/78 120/78 O2 Sat by Pulse 97 96 97 Oximetry 07/18/21 07/18/21 07/18/21 05:40 05:50 06:00 Temperature Pulse Rate 99 H 106 H 97 H Pulse Rate [ From Monitor] Respiratory 15 19 17 Rate Blood Pressure 120/78 120/78 143/91 O2 Sat by Pulse 96 97 97 Oximetry 07/18/21 07/18/21 07/18/21 06:10 06:20 06:30 Temperature Pulse Rate 102 H 101 H 100 H Pulse Rate [ From Monitor] Respiratory 13 16 21 Rate Blood Pressure 143/91 143/91 143/91 O2 Sat by Pulse 97 96 95 Oximetry 07/18/21 07/18/21 07/18/21 06:40 06:50 07:09 Temperature Pulse Rate 101 H 101 H 105 H Pulse Rate [ From Monitor] Respiratory 20 17 Rate Blood Pressure 143/91 143/91 143/91 O2 Sat by Pulse 95 95 97 Oximetry 07/18/21 07/18/21 07/18/21 07:10 07:20 07:30 Temperature Pulse Rate 104 H 105 H 108 H Pulse Rate [ From Monitor] Respiratory 15 14 31 H Rate Blood Pressure 141/99 141/99 141/99 O2 Sat by Pulse 97 96 96 Oximetry 07/18/21 07/18/21 07/18/21 07:40 07:50 08:00 Temperature 98 F Pulse Rate 99 H 99 H 95 H Pulse Rate [ 115 H From Monitor] Respiratory 26 H 19 20 Rate Blood Pressure 141/99 141/99 143/89 O2 Sat by Pulse 97 98 96 Oximetry 07/18/21 07/18/21 07/18/21 08:10 08:13 08:20 Temperature Pulse Rate 107 H 114 H Pulse Rate [ From Monitor] Respiratory Rate Blood Pressure 143/89 143/89 O2 Sat by Pulse 96 97 98 Oximetry 07/18/21 07/18/21 07/18/21 08:30 08:40 08:50 Temperature Pulse Rate 100 H 104 H 101 H Pulse Rate [ From Monitor] Respiratory Rate Blood Pressure 143/89 143/89 143/89 O2 Sat by Pulse 96 97 94 Oximetry 07/18/21 07/18/21 07/18/21 09:00 09:10 09:20 Temperature Pulse Rate 103 H 99 H 96 H Pulse Rate [ From Monitor] Respiratory 23 25 H 21 Rate Blood Pressure 162/93 138/83 138/83 O2 Sat by Pulse 98 98 96 Oximetry 07/18/21 07/18/21 07/18/21 09:30 09:40 09:50 Temperature Pulse Rate 114 H 102 H 99 H Pulse Rate [ From Monitor] Respiratory 19 20 17 Rate Blood Pressure 138/83 138/83 138/83 O2 Sat by Pulse 97 Oximetry 07/18/21 07/18/21 07/18/21 10:00 10:10 10:20 Temperature Pulse Rate 98 H 102 H 103 H Pulse Rate [ From Monitor] Respiratory 14 16 21 Rate Blood Pressure 135/80 135/80 135/80 O2 Sat by Pulse Oximetry 07/18/21 07/18/21 07/18/21 10:30 10:40 10:50 Temperature Pulse Rate 99 H 99 H 99 H Pulse Rate [ From Monitor] Respiratory 21 14 13 Rate Blood Pressure 135/80 135/80 135/80 O2 Sat by Pulse Oximetry 07/18/21 11:00 Temperature Pulse Rate 97 H Pulse Rate [ From Monitor] Respiratory 15 Rate Blood Pressure 145/86 O2 Sat by Pulse Oximetry Gastrointestinal: normoactive bowel sounds Integumentary: normal CBC and BMP: 07/18/21 07:30 07/18/21 07:30 ABG, PT/INR, D-dimer: ABG ABG pH 7.245 pH Units (7.350-7.450) L 07/17/21 02:00 ABG pCO2 45.0 mm Hg 07/17/21 02:00 ABG pO2 200.9 mm Hg (80.0-90.0) H 07/17/21 02:00 ABG O2 Saturation 99.2 % (95.0-99.0) H 07/17/21 02:00 PT/INR, D-dimer PT 14.6 Sec. (12.2-14.9) 07/17/21 00:47 INR 1.03 (0.87-1.13) 07/17/21 00:47 Abnormal lab findings: Abnormal Labs 07/17/21 07/17/21 07/17/21 00:47 00:47 00:47 WBC 19.0 H RBC 5.74 H Hgb 16.1 H Hct 51.0 H RDW 12.3 L [place] # (Auto) Seg Neutrophils % Seg Neutrophils # Seg Neutrophils # Man 12.7 H Thrombin Time 19.7 H ABG pH ABG pO2 ABG HCO3 ABG O2 Saturation ABG Base Excess VBG pH Sodium 135 L Chloride 92.9 L Carbon Dioxide 10 L BUN Creatinine 1.4 H Glucose 532 H* POC Glucose Phosphorus Magnesium 2.60 H Total Bilirubin AST ALT Alkaline Phosphatase 143 H Total Protein Salicylates Acetaminophen 07/17/21 07/17/21 07/17/21 00:47 00:47 00:47 WBC RBC Hgb Hct RDW [place] # (Auto) Seg Neutrophils % Seg Neutrophils # Seg Neutrophils # Man Thrombin Time ABG pH ABG pO2 ABG HCO3 ABG O2 Saturation ABG Base Excess VBG pH 7.015 L* Sodium Chloride Carbon Dioxide BUN Creatinine Glucose POC Glucose Phosphorus Magnesium Total Bilirubin AST ALT Alkaline Phosphatase Total Protein Salicylates < 0.3 L Acetaminophen 5.0 L 07/17/21 07/17/21 07/17/21 01:45 02:00 03:44 WBC RBC Hgb Hct RDW [place] # (Auto) Seg Neutrophils % Seg Neutrophils # Seg Neutrophils # Man Thrombin Time ABG pH 7.245 L ABG pO2 200.9 H ABG HCO3 19.1 L ABG O2 Saturation 99.2 H ABG Base Excess -8.1 L VBG pH Sodium 132 L 132 L Chloride 94.5 L Carbon Dioxide 15 L 18 L BUN Creatinine 1.5 H 1.4 H Glucose 540 H* 545 H* POC Glucose Phosphorus Magnesium Total Bilirubin AST ALT Alkaline Phosphatase Total Protein Salicylates Acetaminophen 07/17/21 07/17/21 07/17/21 03:47 03:58 05:42 WBC RBC Hgb Hct RDW [place] # (Auto) Seg Neutrophils % Seg Neutrophils # Seg Neutrophils # Man Thrombin Time ABG pH ABG pO2 ABG HCO3 ABG O2 Saturation ABG Base Excess VBG pH Sodium Chloride Carbon Dioxide 20 L BUN Creatinine Glucose 342 H POC Glucose 483 H Phosphorus 2.10 L Magnesium 2.50 H Total Bilirubin AST ALT Alkaline Phosphatase Total Protein Salicylates Acetaminophen 07/17/21 07/17/21 07/17/21 06:36 07:24 08:26 WBC RBC Hgb Hct RDW [place] # (Auto) Seg Neutrophils % Seg Neutrophils # Seg Neutrophils # Man Thrombin Time ABG pH ABG pO2 ABG HCO3 ABG O2 Saturation ABG Base Excess VBG pH Sodium Chloride Carbon Dioxide BUN Creatinine Glucose POC Glucose 360 H 264 H 249 H Phosphorus Magnesium Total Bilirubin AST ALT Alkaline Phosphatase Total Protein Salicylates Acetaminophen 07/17/21 07/17/21 07/17/21 09:27 10:29 11:32 WBC RBC Hgb Hct RDW [place] # (Auto) Seg Neutrophils % Seg Neutrophils # Seg Neutrophils # Man Thrombin Time ABG pH ABG pO2 ABG HCO3 ABG O2 Saturation ABG Base Excess VBG pH Sodium Chloride Carbon Dioxide BUN Creatinine Glucose POC Glucose 261 H 200 H 184 H Phosphorus Magnesium Total Bilirubin AST ALT Alkaline Phosphatase Total Protein Salicylates Acetaminophen 07/17/21 07/17/21 07/17/21 11:54 12:26 13:45 WBC RBC Hgb Hct RDW [place] # (Auto) Seg Neutrophils % Seg Neutrophils # Seg Neutrophils # Man Thrombin Time ABG pH ABG pO2 ABG HCO3 ABG O2 Saturation ABG Base Excess VBG pH Sodium Chloride Carbon Dioxide 20 L BUN Creatinine Glucose 192 H POC Glucose 188 H 211 H Phosphorus Magnesium 2.50 H Total Bilirubin AST ALT Alkaline Phosphatase Total Protein Salicylates Acetaminophen 07/17/21 07/17/21 07/17/21 14:19 15:33 16:34 WBC RBC Hgb Hct RDW [place] # (Auto) Seg Neutrophils % Seg Neutrophils # Seg Neutrophils # Man Thrombin Time ABG pH ABG pO2 ABG HCO3 ABG O2 Saturation ABG Base Excess VBG pH Sodium Chloride Carbon Dioxide BUN Creatinine Glucose POC Glucose 223 H 199 H 211 H Phosphorus Magnesium Total Bilirubin AST ALT Alkaline Phosphatase Total Protein Salicylates Acetaminophen 07/17/21 07/17/21 07/17/21 17:33 18:20 18:44 WBC RBC Hgb Hct RDW [place] # (Auto) Seg Neutrophils % Seg Neutrophils # Seg Neutrophils # Man Thrombin Time ABG pH ABG pO2 ABG HCO3 ABG O2 Saturation ABG Base Excess VBG pH Sodium Chloride 107.3 H Carbon Dioxide 20 L BUN Creatinine Glucose 202 H POC Glucose 182 H 207 H Phosphorus Magnesium Total Bilirubin AST ALT Alkaline Phosphatase Total Protein Salicylates Acetaminophen 07/17/21 07/17/21 07/17/21 19:45 20:53 22:18 WBC RBC Hgb Hct RDW [place] # (Auto) Seg Neutrophils % Seg Neutrophils # Seg Neutrophils # Man Thrombin Time ABG pH ABG pO2 ABG HCO3 ABG O2 Saturation ABG Base Excess VBG pH Sodium Chloride Carbon Dioxide BUN Creatinine Glucose POC Glucose 217 H 205 H 215 H Phosphorus Magnesium Total Bilirubin AST ALT Alkaline Phosphatase Total Protein Salicylates Acetaminophen 07/17/21 07/17/21 07/18/21 22:57 23:57 01:00 WBC RBC Hgb Hct RDW [place] # (Auto) Seg Neutrophils % Seg Neutrophils # Seg Neutrophils # Man Thrombin Time ABG pH ABG pO2 ABG HCO3 ABG O2 Saturation ABG Base Excess VBG pH Sodium Chloride 111.9 H Carbon Dioxide 19 L BUN Creatinine Glucose 154 H POC Glucose 207 H 174 H Phosphorus Magnesium Total Bilirubin AST ALT Alkaline Phosphatase Total Protein Salicylates Acetaminophen 07/18/21 07/18/21 07/18/21 01:18 01:59 03:01 WBC RBC Hgb Hct RDW [place] # (Auto) Seg Neutrophils % Seg Neutrophils # Seg Neutrophils # Man Thrombin Time ABG pH ABG pO2 ABG HCO3 ABG O2 Saturation ABG Base Excess VBG pH Sodium Chloride Carbon Dioxide BUN Creatinine Glucose POC Glucose 130 H 152 H 168 H Phosphorus Magnesium Total Bilirubin AST ALT Alkaline Phosphatase Total Protein Salicylates Acetaminophen 07/18/21 07/18/21 07/18/21 03:57 05:09 05:49 WBC RBC Hgb Hct RDW [place] # (Auto) Seg Neutrophils % Seg Neutrophils # Seg Neutrophils # Man Thrombin Time ABG pH ABG pO2 ABG HCO3 ABG O2 Saturation ABG Base Excess VBG pH Sodium Chloride Carbon Dioxide BUN Creatinine Glucose POC Glucose 157 H 151 H 166 H Phosphorus Magnesium Total Bilirubin AST ALT Alkaline Phosphatase Total Protein Salicylates Acetaminophen 07/18/21 07/18/21 07/18/21 07:13 07:30 07:30 WBC 12.1 H RBC 5.34 H Hgb Hct RDW [place] # (Auto) 0.9 H Seg Neutrophils % 74.8 H Seg Neutrophils # 9.0 H Seg Neutrophils # Man Thrombin Time ABG pH ABG pO2 ABG HCO3 ABG O2 Saturation ABG Base Excess VBG pH Sodium Chloride 108.5 H Carbon Dioxide BUN 8 L Creatinine Glucose 149 H POC Glucose 137 H Phosphorus 2.30 L Magnesium Total Bilirubin 2.00 H AST 234 H ALT 149 H Alkaline Phosphatase Total Protein 5.9 L Salicylates Acetaminophen 07/18/21 08:03 WBC RBC Hgb Hct RDW [place] # (Auto) Seg Neutrophils % Seg Neutrophils # Seg Neutrophils # Man Thrombin Time ABG pH ABG pO2 ABG HCO3 ABG O2 Saturation ABG Base Excess VBG pH Sodium Chloride Carbon Dioxide BUN Creatinine Glucose POC Glucose 149 H Phosphorus Magnesium Total Bilirubin AST ALT Alkaline Phosphatase Total Protein Salicylates Acetaminophen
[2021-07-18] MEDS: INSULIN REGULAR, HUMAN 100 UNITS/1 ML SUB-Q SCH ×2 (12:17→22:29)
--- NOTE | 2021-07-18 12:28 | Progress Note ---
Assessment and Plan Patient 50-year-old male with a past medical history of seizures and hyperglycemia who was brought to the ED due to seizures and reports of SVT Seizures- neurology following SVT? Acute respiratory failure-Pulmonlogy following Hyperglycemia Leukocytosis Hypermagnesemia Echo 07/17/2021-left ventricular systolic function is normal. Mild diastolic dysfunction present impaired relaxation pattern. Right ventricular systolic function is normal. Right and left atrium are normal in size Plan: EKG shows sinus tach 110 no acute ischemic changes. Trop negx1 Unclear as to if the patient went to SVT no EKG to show it. Patient remains sinus on monitors with no events Echo resultes noted above Patient had normal echo and has had no signs of SVT on monitor. Unclear if patient had SVT and if they likely related to hyperglycemia and seizure Cardiac status is stable. Will sign off Patient seen in conjunction with Dr. Solis who agrees with this plan of care - Patient Problems (1) Leukocytosis Current Visit: Yes Status: Acute (2) Hypermagnesemia Current Visit: Yes Status: Acute (3) Acute respiratory failure Current Visit: Yes Status: Acute (4) SVT (supraventricular tachycardia) Current Visit: Yes Status: Acute (5) Seizure Current Visit: Yes Status: Acute Subjective Date of service: 07/18/21 Principal diagnosis: seizure,DKA Interval history: Patient is extubated and is resting in bed in no acute distress Patient sinus tach low 100s on monitor with no events Objective Vital Signs Temp Pulse Pulse Resp BP Pulse Ox 07/18/21 11:00 97 H 15 145/86 07/18/21 10:50 99 H 13 135/80 07/18/21 10:40 99 H 14 135/80 07/18/21 10:30 99 H 21 135/80 07/18/21 10:20 103 H 21 135/80 07/18/21 10:10 102 H 16 135/80 07/18/21 10:00 98 H 14 135/80 07/18/21 09:50 99 H 17 138/83 07/18/21 09:40 102 H 20 138/83 07/18/21 09:30 114 H 19 138/83 97 07/18/21 09:20 96 H 21 138/83 96 07/18/21 09:10 99 H 25 H 138/83 98 07/18/21 09:00 103 H 23 162/93 98 07/18/21 08:50 101 H 143/89 94 07/18/21 08:40 104 H 143/89 97 07/18/21 08:30 100 H 143/89 96 07/18/21 08:20 114 H 143/89 98 07/18/21 08:13 97 07/18/21 08:10 107 H 143/89 96 07/18/21 08:00 98 F 95 H 115 H 20 143/89 96 07/18/21 07:50 99 H 19 141/99 98 07/18/21 07:40 99 H 26 H 141/99 97 07/18/21 07:30 108 H 31 H 141/99 96 07/18/21 07:20 105 H 14 141/99 96 07/18/21 07:10 104 H 15 141/99 97 07/18/21 07:09 105 H 143/91 97 07/18/21 06:50 101 H 17 143/91 95 07/18/21 06:40 101 H 20 143/91 95 07/18/21 06:30 100 H 21 143/91 95 07/18/21 06:20 101 H 16 143/91 96 07/18/21 06:10 102 H 13 143/91 97 07/18/21 06:00 97 H 17 143/91 97 07/18/21 05:50 106 H 19 120/78 97 07/18/21 05:40 99 H 15 120/78 96 07/18/21 05:30 104 H 20 120/78 97 07/18/21 05:20 100 H 12 120/78 96 07/18/21 05:10 106 H 18 120/78 97 07/18/21 05:00 107 H 18 120/78 93 07/18/21 04:50 103 H 15 134/82 97 07/18/21 04:40 103 H 16 134/82 96 07/18/21 04:30 100 H 16 134/82 96 07/18/21 04:20 99 H 26 H 134/82 96 07/18/21 04:10 101 H 13 134/82 96 07/18/21 04:00 98.9 F 104 H 115 H 22 134/82 98 07/18/21 03:50 109 H 17 112/78 95 07/18/21 03:40 102 H 17 112/78 96 07/18/21 03:30 108 H 21 112/78 94 07/18/21 03:20 105 H 21 112/78 95 07/18/21 03:10 101 H 21 112/78 95 07/18/21 03:00 104 H 19 112/78 95 07/18/21 02:50 98 H 13 126/77 95 07/18/21 02:40 141 H 27 H 126/77 96 07/18/21 02:30 110 H 13 126/77 95 07/18/21 02:20 117 H 16 126/77 96 07/18/21 02:10 112 H 18 126/77 96 07/18/21 02:00 105 H 24 126/77 98 07/18/21 01:50 102 H 22 129/69 95 07/18/21 01:40 104 H 20 129/69 94 07/18/21 01:30 121 H 20 129/69 95 07/18/21 01:20 112 H 19 129/69 96 07/18/21 01:10 108 H 21 129/69 97 07/18/21 01:00 107 H 20 129/69 96 07/18/21 00:50 109 H 13 122/69 96 07/18/21 00:40 110 H 14 122/69 95 07/18/21 00:30 113 H 16 122/69 97 07/18/21 00:20 111 H 15 122/69 96 07/18/21 00:10 110 H 32 H 122/69 95 07/18/21 00:00 99.4 F 114 H 115 H 13 122/69 97 07/17/21 23:50 130 H 25 H 113/69 96 07/17/21 23:40 110 H 16 113/69 96 07/17/21 23:30 111 H 16 113/69 96 07/17/21 23:20 107 H 21 113/69 98 07/17/21 23:10 105 H 22 113/69 96 07/17/21 23:00 104 H 20 113/69 97 07/17/21 22:50 105 H 18 120/79 96 07/17/21 22:40 112 H 26 H 120/79 99 07/17/21 22:30 108 H 27 H 120/79 97 07/17/21 22:20 109 H 21 120/79 98 07/17/21 22:10 104 H 25 H 120/79 97 07/17/21 22:00 104 H 21 120/79 97 07/17/21 21:50 113 H 11 L 130/78 97 07/17/21 21:40 108 H 27 H 130/78 96 07/17/21 21:30 108 H 27 H 130/78 98 07/17/21 21:20 105 H 20 130/78 99 07/17/21 21:10 109 H 22 130/78 98 07/17/21 21:04 97 07/17/21 21:00 109 H 26 H 130/78 96 07/17/21 20:50 105 H 16 129/74 98 07/17/21 20:40 105 H 24 129/74 98 07/17/21 20:30 106 H 11 L 129/74 99 07/17/21 20:20 111 H 21 129/74 98 07/17/21 20:10 111 H 26 H 129/74 95 07/17/21 20:00 100.8 F H 115 H 115 H 23 129/74 97 07/17/21 19:50 117 H 20 118/72 96 07/17/21 19:40 116 H 22 140/88 07/17/21 19:30 140/88 80 L 07/17/21 19:20 140/88 80 L 07/17/21 19:10 140/88 07/17/21 19:00 107 H 26 H 140/88 100 07/17/21 18:50 116 H 16 148/91 100 07/17/21 18:40 111 H 29 H 148/91 99 07/17/21 18:30 110 H 45 H 148/91 100 07/17/21 18:22 113 H 19 148/91 83 L 07/17/21 18:01 148/91 80 L 07/17/21 17:50 125 H 22 148/91 07/17/21 17:40 129 H 21 148/91 83 L 07/17/21 17:30 126 H 16 148/91 100 07/17/21 17:20 127 H 27 H 148/91 100 07/17/21 17:10 120 H 19 148/91 07/17/21 17:00 128 H 16 148/91 07/17/21 16:50 126 H 18 187/102 07/17/21 16:40 128 H 17 187/102 07/17/21 16:30 123 H 29 H 187/102 07/17/21 16:20 135 H 23 187/102 07/17/21 16:15 98 07/17/21 16:10 146 H 28 H 187/102 07/17/21 16:00 99 F 147 H 147 H 29 H 187/102 98 07/17/21 15:50 148 H 41 H 187/102 07/17/21 15:40 146 H 34 H 187/102 94 07/17/21 15:30 141 H 32 H 187/102 100 07/17/21 15:20 140 H 35 H 187/102 97 07/17/21 15:10 135 H 33 H 187/102 100 07/17/21 15:00 130 H 28 H 187/102 99 07/17/21 14:50 127 H 28 H 187/102 99 07/17/21 14:40 126 H 35 H 187/102 100 07/17/21 14:30 118 H 30 H 187/102 99 07/17/21 14:20 121 H 29 H 187/102 100 07/17/21 14:10 126 H 30 H 187/102 97 07/17/21 14:00 128 H 34 H 98 07/17/21 13:50 122 H 29 H 98 07/17/21 13:40 120 H 25 H 100 07/17/21 13:30 120 H 25 H 100 07/17/21 13:20 121 H 25 H 100 07/17/21 13:10 119 H 23 99 07/17/21 13:00 130 H 34 H 97 07/17/21 12:55 127 H 157/86 99 07/17/21 12:50 122 H 23 99 - Physical Examination General: No Apparent Distress HEENT: Positive: Normocephaly Neck: Positive: trachea midline Cardiac: Positive: Reg Rate and Rhythm Lungs: Positive: Normal Breath Sounds Neuro: Positive: Grossly Intact Abdomen: Positive: Soft Skin: Negative: Rash, Suspicious Lesions, Ulceration Extremities: Present: upper extr. pulses. Absent: edema - Labs and Meds Cardiac Enzymes 07/18/21 Range/Units 07:30 AST 234 H (5-40) units/L CBC 07/18/21 Range/Units 07:30 WBC 12.1 H (4.5-11.0) K/mm3 RBC 5.34 H (3.65-5.03) M/mm3 Hgb 15.2 (11.8-15.2) gm/dl Hct 45.2 (35.5-45.6) % Plt Count 154 (140-440) K/mm3 Lymph # (Auto) 1.7 (1.2-5.4) K/mm3 [place] # (Auto) 0.9 H (0.0-0.8) K/mm3 Eos # (Auto) 0.4 (0.0-0.4) K/mm3 Baso # (Auto) 0.1 (0.0-0.1) K/mm3 Comprehensive Metabolic Panel 07/17/21 07/17/21 07/18/21 Range/Units 11:54 18:44 01:00 Sodium 140 141 143 (137-145) mmol/L Potassium 4.1 4.1 3.6 (3.6-5.0) mmol/L Chloride 105.7 107.3 H 111.9 H (98-107) mmol/L Carbon Dioxide 20 L 20 L 19 L (22-30) mmol/L BUN 16 13 10 (9-20) mg/dL Creatinine 1.1 1.2 1.1 (0.8-1.3) mg/dL Glucose 192 H 202 H 154 H (75-100) mg/dL Calcium 9.2 9.0 8.8 (8.4-10.2) mg/dL AST (5-40) units/L ALT (7-56) units/L Alkaline Phosphatase (35-129) units/L Total Protein (6.3-8.2) g/dL Albumin (3.9-5) g/dL 07/18/21 Range/Units 07:30 Sodium 143 (137-145) mmol/L Potassium 3.9 (3.6-5.0) mmol/L Chloride 108.5 H (98-107) mmol/L Carbon Dioxide 23 (22-30) mmol/L BUN 8 L (9-20) mg/dL Creatinine 0.9 (0.8-1.3) mg/dL Glucose 149 H (75-100) mg/dL Calcium 9.1 (8.4-10.2) mg/dL AST 234 H (5-40) units/L ALT 149 H (7-56) units/L Alkaline Phosphatase 79 (35-129) units/L Total Protein 5.9 L (6.3-8.2) g/dL Albumin 3.9 (3.9-5) g/dL - Imaging and Cardiology Echo: report reviewed - Telemetry EKG Rhythm: Sinus Tachycardia - EKG Sinus rhythms and dysrhythmias: sinus tachycardia
[2021-07-18] MEDS: FAMOTIDINE 20 MG TAB PO SCH (21:52)
[2021-07-18] MEDS: levETIRAcetam 500 MG TAB PO SCH (21:52)
[2021-07-18] MEDS ORDERED: ENOXAPARIN 40 MG/0.4 ML INJ SUB-Q SCH (22:00)
[2021-07-19 03:36] VITALS: BP 148/95
[2021-07-19 06:22] LABS: Hemoglobin 15.4 gm/dl (11.8-15.2); Mean Corpuscular HGB Conc 33 % (32-34); Mean Corpuscular Volume 85 fl (84-94); Platelet Count 159 K/mm3 (140-440); Red Blood Count 5.54 M/mm3 (3.65-5.03); Red Cell Distribution Width 12.9 % (13.2-15.2)
[2021-07-19 06:34] LABS: BUN/Creatinine Ratio 9; Blood Urea Nitrogen 8 mg/dL (9-20); Calcium 9.4 mg/dL (8.4-10.2); Hemolysis Index 28
[2021-07-19] MEDS: INSULIN REGULAR, HUMAN 100 UNITS/1 ML SUB-Q SCH ×2 (09:24→12:16)
[2021-07-19] MEDS: INSULIN NPH/REGULAR 70/30 INJ SUB-Q SCH (09:25)
[2021-07-19] MEDS: levETIRAcetam 500 MG TAB PO SCH (09:31)
[2021-07-19] MEDS: FAMOTIDINE 20 MG TAB PO SCH (09:31)
[2021-07-19] MEDS: SENNOSIDES/DOCUSATE SODIUM 8.6/50 MG TAB FEEDTUBE SCH (09:32)
--- NOTE | 2021-07-19 10:07 | Electrocardiograph Report ---
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
--- NOTE | 2021-07-19 12:16 | Magnetic Resonance Report ---
MR brain wo/w con INDICATION / CLINICAL INFORMATION: 50 years Male; seizure. TECHNIQUE: Multiplanar, multisequence MR images of the brain were obtained. Motion artifact present. COMPARISON: CT-07/17/2021 FINDINGS: BRAIN / INTRACRANIAL CONTENTS: No acute hemorrhage, mass effect, midline shift, hydrocephalus, or acu te, large territorial infarct. No chronic infarct or atrophy. Minimal, nonspecific white matter disea se identified. Hippocampal regions are grossly normal. I see no signs of abnormal enhancement following contrast administration. CRANIOCERVICAL JUNCTION: No significant abnormality. VASCULAR FLOW-VOIDS: No significant abnormality. ORBITS: No significant abnormality of visualized orbits. SINUSES / MASTOIDS: Mild to moderate mucosal thickening of the ethmoids-right greater than left. Mode rate mucous retention cysts seen in the sphenoid sinuses-right more than left. ADDITIONAL FINDINGS: None. IMPRESSION: 1. No focal mass, hemorrhage, hydrocephalus, or acute ischemia. Signer Name: Lane Alvarenga MD, III Signed: 07/19/2021 12:12 PM Workstation Name: [id number]
--- NOTE | 2021-07-19 13:33 | Progress Note ---
Assessment and Plan 50 y/o male admitted with hyperglycemia, SVT s/po cardioversion, admitted post cardioversion as patient was not protecting his airway. 07/19/21: Pulm status stable. Will sign off. Call if questions. 07/18/21: transfer to floor (COVID is still pending even though sent yesterday). Will send to COVID floor until labs return. Follow up neurology recs. Diabetic education. Dietary changes. Will sign off, once out of unit. 1. ABG stat this am 2. IF abg is adequate, turn off sedation and extubate 3. If extubated, assess swallowing and feed 4. Needs long acting insulin, check A1c 5. Follow Neuro Recs 6. Guarded Prognosis. CCT 31 minutes. Subjective Date of service: 07/19/21 Principal diagnosis: seizure,DKA Interval history: No acute events. STable on Room air. Objective Vital Signs - 12hr 07/19/21 07/19/21 07/19/21 03:24 04:00 08:00 Temperature 98.0 F Pulse Rate 89 94 H 99 H Respiratory 16 17 17 Rate Blood Pressure 148/95 O2 Sat by Pulse 100 98 98 Oximetry Gastrointestinal: normoactive bowel sounds Integumentary: normal CBC and BMP: 07/19/21 05:39 07/19/21 05:39 ABG, PT/INR, D-dimer: ABG ABG pH 7.245 pH Units (7.350-7.450) L 07/17/21 02:00 ABG pCO2 45.0 mm Hg 07/17/21 02:00 ABG pO2 200.9 mm Hg (80.0-90.0) H 07/17/21 02:00 ABG O2 Saturation 99.2 % (95.0-99.0) H 07/17/21 02:00 PT/INR, D-dimer PT 14.6 Sec. (12.2-14.9) 07/17/21 00:47 INR 1.03 (0.87-1.13) 07/17/21 00:47 Abnormal lab findings: Abnormal Labs 07/17/21 07/17/21 07/17/21 00:47 00:47 00:47 WBC 19.0 H RBC 5.74 H Hgb 16.1 H Hct 51.0 H RDW 12.3 L [place] # (Auto) Seg Neutrophils % Seg Neutrophils # Seg Neutrophils # Man 12.7 H Thrombin Time 19.7 H ABG pH ABG pO2 ABG HCO3 ABG O2 Saturation ABG Base Excess VBG pH Sodium 135 L Potassium Chloride 92.9 L Carbon Dioxide 10 L BUN Creatinine 1.4 H Glucose 532 H* POC Glucose Hemoglobin A1c Phosphorus Magnesium 2.60 H Total Bilirubin AST ALT Alkaline Phosphatase 143 H Total Protein Salicylates Acetaminophen 07/17/21 07/17/21 07/17/21 00:47 00:47 00:47 WBC RBC Hgb Hct RDW [place] # (Auto) Seg Neutrophils % Seg Neutrophils # Seg Neutrophils # Man Thrombin Time ABG pH ABG pO2 ABG HCO3 ABG O2 Saturation ABG Base Excess VBG pH 7.015 L* Sodium Potassium Chloride Carbon Dioxide BUN Creatinine Glucose POC Glucose Hemoglobin A1c Phosphorus Magnesium Total Bilirubin AST ALT Alkaline Phosphatase Total Protein Salicylates < 0.3 L Acetaminophen 5.0 L 07/17/21 07/17/21 07/17/21 01:45 02:00 03:44 WBC RBC Hgb Hct RDW [place] # (Auto) Seg Neutrophils % Seg Neutrophils # Seg Neutrophils # Man Thrombin Time ABG pH 7.245 L ABG pO2 200.9 H ABG HCO3 19.1 L ABG O2 Saturation 99.2 H ABG Base Excess -8.1 L VBG pH Sodium 132 L 132 L Potassium Chloride 94.5 L Carbon Dioxide 15 L 18 L BUN Creatinine 1.5 H 1.4 H Glucose 540 H* 545 H* POC Glucose Hemoglobin A1c Phosphorus Magnesium Total Bilirubin AST ALT Alkaline Phosphatase Total Protein Salicylates Acetaminophen 07/17/21 07/17/21 07/17/21 03:47 03:58 05:42 WBC RBC Hgb Hct RDW [place] # (Auto) Seg Neutrophils % Seg Neutrophils # Seg Neutrophils # Man Thrombin Time ABG pH ABG pO2 ABG HCO3 ABG O2 Saturation ABG Base Excess VBG pH Sodium Potassium Chloride Carbon Dioxide 20 L BUN Creatinine Glucose 342 H POC Glucose 483 H Hemoglobin A1c Phosphorus 2.10 L Magnesium 2.50 H Total Bilirubin AST ALT Alkaline Phosphatase Total Protein Salicylates Acetaminophen 07/17/21 07/17/21 07/17/21 06:36 07:24 08:26 WBC RBC Hgb Hct RDW [place] # (Auto) Seg Neutrophils % Seg Neutrophils # Seg Neutrophils # Man Thrombin Time ABG pH ABG pO2 ABG HCO3 ABG O2 Saturation ABG Base Excess VBG pH Sodium Potassium Chloride Carbon Dioxide BUN Creatinine Glucose POC Glucose 360 H 264 H 249 H Hemoglobin A1c Phosphorus Magnesium Total Bilirubin AST ALT Alkaline Phosphatase Total Protein Salicylates Acetaminophen 07/17/21 07/17/21 07/17/21 09:27 10:29 11:32 WBC RBC Hgb Hct RDW [place] # (Auto) Seg Neutrophils % Seg Neutrophils # Seg Neutrophils # Man Thrombin Time ABG pH ABG pO2 ABG HCO3 ABG O2 Saturation ABG Base Excess VBG pH Sodium Potassium Chloride Carbon Dioxide BUN Creatinine Glucose POC Glucose 261 H 200 H 184 H Hemoglobin A1c Phosphorus Magnesium Total Bilirubin AST ALT Alkaline Phosphatase Total Protein Salicylates Acetaminophen 07/17/21 07/17/21 07/17/21 11:54 12:26 13:45 WBC RBC Hgb Hct RDW [place] # (Auto) Seg Neutrophils % Seg Neutrophils # Seg Neutrophils # Man Thrombin Time ABG pH ABG pO2 ABG HCO3 ABG O2 Saturation ABG Base Excess VBG pH Sodium Potassium Chloride Carbon Dioxide 20 L BUN Creatinine Glucose 192 H POC Glucose 188 H 211 H Hemoglobin A1c Phosphorus Magnesium 2.50 H Total Bilirubin AST ALT Alkaline Phosphatase Total Protein Salicylates Acetaminophen 07/17/21 07/17/21 07/17/21 14:19 15:33 16:34 WBC RBC Hgb Hct RDW [place] # (Auto) Seg Neutrophils % Seg Neutrophils # Seg Neutrophils # Man Thrombin Time ABG pH ABG pO2 ABG HCO3 ABG O2 Saturation ABG Base Excess VBG pH Sodium Potassium Chloride Carbon Dioxide BUN Creatinine Glucose POC Glucose 223 H 199 H 211 H Hemoglobin A1c Phosphorus Magnesium Total Bilirubin AST ALT Alkaline Phosphatase Total Protein Salicylates Acetaminophen 07/17/21 07/17/21 07/17/21 17:33 18:20 18:44 WBC RBC Hgb Hct RDW [place] # (Auto) Seg Neutrophils % Seg Neutrophils # Seg Neutrophils # Man Thrombin Time ABG pH ABG pO2 ABG HCO3 ABG O2 Saturation ABG Base Excess VBG pH Sodium Potassium Chloride 107.3 H Carbon Dioxide 20 L BUN Creatinine Glucose 202 H POC Glucose 182 H 207 H Hemoglobin A1c Phosphorus Magnesium Total Bilirubin AST ALT Alkaline Phosphatase Total Protein Salicylates Acetaminophen 07/17/21 07/17/21 07/17/21 19:45 20:53 22:18 WBC RBC Hgb Hct RDW [place] # (Auto) Seg Neutrophils % Seg Neutrophils # Seg Neutrophils # Man Thrombin Time ABG pH ABG pO2 ABG HCO3 ABG O2 Saturation ABG Base Excess VBG pH Sodium Potassium Chloride Carbon Dioxide BUN Creatinine Glucose POC Glucose 217 H 205 H 215 H Hemoglobin A1c Phosphorus Magnesium Total Bilirubin AST ALT Alkaline Phosphatase Total Protein Salicylates Acetaminophen 07/17/21 07/17/21 07/18/21 22:57 23:57 01:00 WBC RBC Hgb Hct RDW [place] # (Auto) Seg Neutrophils % Seg Neutrophils # Seg Neutrophils # Man Thrombin Time ABG pH ABG pO2 ABG HCO3 ABG O2 Saturation ABG Base Excess VBG pH Sodium Potassium Chloride 111.9 H Carbon Dioxide 19 L BUN Creatinine Glucose 154 H POC Glucose 207 H 174 H Hemoglobin A1c Phosphorus Magnesium Total Bilirubin AST ALT Alkaline Phosphatase Total Protein Salicylates Acetaminophen 07/18/21 07/18/21 07/18/21 01:18 01:59 03:01 WBC RBC Hgb Hct RDW [place] # (Auto) Seg Neutrophils % Seg Neutrophils # Seg Neutrophils # Man Thrombin Time ABG pH ABG pO2 ABG HCO3 ABG O2 Saturation ABG Base Excess VBG pH Sodium Potassium Chloride Carbon Dioxide BUN Creatinine Glucose POC Glucose 130 H 152 H 168 H Hemoglobin A1c Phosphorus Magnesium Total Bilirubin AST ALT Alkaline Phosphatase Total Protein Salicylates Acetaminophen 07/18/21 07/18/21 07/18/21 03:57 05:09 05:49 WBC RBC Hgb Hct RDW [place] # (Auto) Seg Neutrophils % Seg Neutrophils # Seg Neutrophils # Man Thrombin Time ABG pH ABG pO2 ABG HCO3 ABG O2 Saturation ABG Base Excess VBG pH Sodium Potassium Chloride Carbon Dioxide BUN Creatinine Glucose POC Glucose 157 H 151 H 166 H Hemoglobin A1c Phosphorus Magnesium Total Bilirubin AST ALT Alkaline Phosphatase Total Protein Salicylates Acetaminophen 07/18/21 07/18/21 07/18/21 07:13 07:30 07:30 WBC 12.1 H RBC 5.34 H Hgb Hct RDW [place] # (Auto) 0.9 H Seg Neutrophils % 74.8 H Seg Neutrophils # 9.0 H Seg Neutrophils # Man Thrombin Time ABG pH ABG pO2 ABG HCO3 ABG O2 Saturation ABG Base Excess VBG pH Sodium Potassium Chloride 108.5 H Carbon Dioxide BUN 8 L Creatinine Glucose 149 H POC Glucose 137 H Hemoglobin A1c Phosphorus 2.30 L Magnesium Total Bilirubin 2.00 H AST 234 H ALT 149 H Alkaline Phosphatase Total Protein 5.9 L Salicylates Acetaminophen 07/18/21 07/18/21 07/18/21 08:03 11:38 21:50 WBC RBC Hgb Hct RDW [place] # (Auto) Seg Neutrophils % Seg Neutrophils # Seg Neutrophils # Man Thrombin Time ABG pH ABG pO2 ABG HCO3 ABG O2 Saturation ABG Base Excess VBG pH Sodium Potassium Chloride Carbon Dioxide BUN Creatinine Glucose POC Glucose 149 H 177 H 169 H Hemoglobin A1c Phosphorus Magnesium Total Bilirubin AST ALT Alkaline Phosphatase Total Protein Salicylates Acetaminophen 07/19/21 07/19/21 07/19/21 05:39 05:39 05:39 WBC RBC 5.54 H Hgb 15.4 H Hct 47.0 H RDW 12.9 L [place] # (Auto) Seg Neutrophils % Seg Neutrophils # Seg Neutrophils # Man Thrombin Time ABG pH ABG pO2 ABG HCO3 ABG O2 Saturation ABG Base Excess VBG pH Sodium Potassium 3.5 L Chloride Carbon Dioxide BUN 8 L Creatinine Glucose POC Glucose Hemoglobin A1c 8.6 H Phosphorus Magnesium Total Bilirubin AST ALT Alkaline Phosphatase Total Protein Salicylates Acetaminophen 07/19/21 12:00 WBC RBC Hgb Hct RDW [place] # (Auto) Seg Neutrophils % Seg Neutrophils # Seg Neutrophils # Man Thrombin Time ABG pH ABG pO2 ABG HCO3 ABG O2 Saturation ABG Base Excess VBG pH Sodium Potassium Chloride Carbon Dioxide BUN Creatinine Glucose POC Glucose 206 H Hemoglobin A1c Phosphorus Magnesium Total Bilirubin AST ALT Alkaline Phosphatase Total Protein Salicylates Acetaminophen
--- NOTE | 2021-07-19 13:54 | Discharge Summary ---
Providers - Providers Date of Admission: 07/17/21 03:40 Attending physician: ROSY DALTON MD 07/17/21 Consult to Physician [CONS] Stat Comment: Consulting Provider: AKIL VILLALBA Physician Instructions: Reason For Exam: acute rep failure sz 07/17/21 03:40 Consult to Dietitian/Nutrition [CONS] Routine Physician Instructions: Reason For Exam: DKA Reason for Consult: Nutrition Recommendations Reason for Consult: Diet education Consult to Physician [CONS] Routine Comment: Consulting Provider: SUBHA CABRERA Physician Instructions: Reason For Exam: svt 07/17/21 03:44 Consult to Physician [CONS] Routine Comment: Consulting Provider: KARLY UMANA Physician Instructions: Reason For Exam: seizure 07/18/21 16:39 Physical Therapy Evaluation and Treat [CONS] Routine Comment: Reason For Exam: Generalized Weakness Primary care physician: MANUAL TESTER Hospitalization Condition: Critical Disposition: 30 STILL A PATIENT Exam - Constitutional Vitals: Temp Pulse Resp BP Pulse Ox 98.0 F 99 H 17 148/95 98 07/19/21 03:24 07/19/21 08:00 07/19/21 08:00 07/19/21 03:24 07/19/21 08:00 Plan Care Plan Goals: Our labs indicate that your diabetes is not controlled. Your hemoglobin A1c is 8.6%. Goal hemoglobin A1c is less than 7. Please start taking the metformin as prescribed. Check your blood sugars at least once a day and write it down. Bring the recordings to your primary care appointment. Please follow-up with your primary care doctor to make any adjustments to your medications. Also have your primary care provider to refer you to a neurologist for seizure. You are not to drive, operate machinery or swim until you see the neurologist to harm danger to yourself and others. Follow up with: PRIMARY CAREMD [Primary Care Provider] - 7 Days Prescriptions: levETIRAcetam [Keppra TAB] 500 mg PO BID 30 Days #60 tablet Metformin HCl [metFORMIN] 1,000 mg PO BID 30 Days #60 tab
== END 2021-07-19 17:25 | disposition home or self-care (01) | DRG 208 ==
LOC: ED 00:07 → CC1 03:40 → 4A 07-18 15:42
PROVIDERS: ADMIT Hospitalist; ATTEND Student in an Organized Health Care Education/Training Program
PROC: 5A1935Z Respiratory Ventilation, Less than 24 Consecutive Hours (ICD-10-PCS; principal; 2021-07-17)
PROC: 0BH17EZ Insertion of Endotracheal Airway into Trachea, Via Natural or Artificial Opening (ICD-10-PCS; 2021-07-17)
PROC: 4A033R1 Measurement of Arterial Saturation, Peripheral, Percutaneous Approach (ICD-10-PCS; 2021-07-17)
PROC: 5A2204Z Restoration of Cardiac Rhythm, Single (ICD-10-PCS; 2021-07-17)
DX: J96.01 Acute respiratory failure with hypoxia (principal); E11.10 Type 2 diabetes mellitus with ketoacidosis without coma; I47.1 Supraventricular tachycardia; R56.9 Unspecified convulsions; E83.41 Hypermagnesemia; I10 Essential (primary) hypertension
CPT/HCPCS: 36415; 70450; 70496; 70498; 70553; 71045; 80048; 80053; 80307; 80320; 81001; 82550; 82553; 82803; 82805; 82962; 83036; 83735; 84100; 84484; 85007; 85025; 85027; 85610; 85670; 85730; 87205; 93005; 93010; 93306; 94002; 94003; 94760; 95819; G0378; J3480; J3490; J7060; Q0177; Q9967; A9575; C8929; G0480; J0456; J0696; J1650; J1815; J1953; J2250; J2704; J7030; J7120; U0003